=== PATIENT | female | born 1965 | race Caucasian/White ===

== ENCOUNTER 2017-11-13 14:25 | Emergency (ER) | payer BC ==
[2017-11-13 14:53] VITALS: BP 123/72
--- NOTE | 2017-11-13 15:16 | UC ---
Ear Complaint HPI - HPI Summary HPI Summary: 51 yo female with URI symptoms x 4-5 days now with right otalgia and decreased hearing up most of the night due to pain - History of Current Complaint Chief Complaint: UCEar Stated Complaint: RT EAR COMP Time Seen by Provider: 11/13/17 15:10 Hx Obtained From: Patient Hx Last Menstrual Period: 09/21/15 Onset/Duration: Gradual Onset, Lasting Days Severity Initially: Moderate Severity Currently: Mild Pain Intensity: 3 Pain Scale Used: 0-10 Numeric Associated Signs/Symptoms: Positive: Hearing Loss, URI Symptoms - Allergies/Home Medications Allergies/Adverse Reactions: Allergies Allergy/AdvReac Type Severity Reaction Status Date / Time amoxicillin [From Augmentin] Allergy Nausea GI Verified 11/13/17 15:01 upset diarrhea clavulanic acid Allergy Nausea, GI Verified 11/13/17 15:01 [From Augmentin] upset, diarrhea Home Medications: Home Medications Omeprazole 40 mg PO DAILY PRN 11/13/17 [History Confirmed 11/13/17] PMH/Surg Hx/FS Hx/Imm Hx Previously Healthy: Yes Endocrine History: Dyslipidemia - Surgical History Surgical History: Yes Surgery Procedure, Year, and Place: gall bladder removal, left leg fx with metal plate 12/2016 - Family History Known Family History: Positive: Cardiac Disease, Hypertension, Diabetes - Social History Alcohol Use: Weekly Substance Use Type: None Smoking Status (MU): Never Smoked Tobacco - Immunization History Most Recent Influenza Vaccination: may 2015 Review of Systems Constitutional: Negative Skin: Negative Eyes: Negative ENT: Ear Ache, Nasal Discharge, Sinus Congestion, Sinus Pain/Tenderness Respiratory: Negative Cardiovascular: Negative Gastrointestinal: Negative Genitourinary: Negative Motor: Negative Neurovascular: Negative Musculoskeletal: Negative Neurological: Negative Psychological: Negative Is Patient Immunocompromised?: No All Other Systems Reviewed And Are Negative: Yes Physical Exam Triage Information Reviewed: Yes Appearance: Well-Appearing, No Pain Distress, Well-Nourished Vital Signs: Initial Vital Signs Temp 99.1 F 11/13/17 14:47 Pulse 86 11/13/17 14:47 Resp 20 11/13/17 14:47 BP 123/72 11/13/17 14:47 Pulse Ox 98 11/13/17 14:47 Vital Signs Reviewed: Yes Eyes: Positive: Conjunctiva Clear ENT: Positive: Pharynx normal, Nasal congestion, TM bulging, TM red - slight right. Negative: Hearing grossly normal, Nasal drainage Neck: Positive: Supple, Nontender Respiratory: Positive: Lungs clear, Normal breath sounds, No respiratory distress, No accessory muscle use Cardiovascular: Positive: RRR, No Murmur Musculoskeletal: Positive: ROM Intact, No Edema Neurological: Positive: Alert Psychological Exam: Normal Skin Exam: Normal Ear Complaint Course/Dx - Differential Dx/Diagnosis Provider Diagnoses: viral URI. right serous otitis media Discharge - Sign-Out/Discharge Documenting (check all that apply): Discharge/Admit/Transfer - Discharge Plan Condition: Stable Disposition: HOME Prescriptions: Azithromycin TAB* [Zithromax TAB*] 250 mg PO DAILY #6 tab Patient Education Materials: Serous Otitis Media (ED) Referrals: Phuong Sotelo MD [Primary Care Provider] - 2 Weeks (if not better) - Billing Disposition and Condition Condition: STABLE Disposition: HOME
== END 2017-11-13 15:24 | disposition home or self-care (01) ==
LOC: UCCORT 14:25
DX: J06.9 Acute upper respiratory infection, unspecified (principal); H65.91 Unspecified nonsuppurative otitis media, right ear; Z88.8 Allergy status to other drugs, medicaments and biological substances; Z88.0 Allergy status to penicillin
CPT/HCPCS: 99212; G0463

== ENCOUNTER 2018-01-04 10:50 | Emergency (ER) | payer BC ==
[2018-01-04 12:02] VITALS: BP 112/69
--- NOTE | 2018-01-04 13:06 | UC ---
UC General HPI - HPI Summary HPI Summary: Patient presents complaining of 3 week history of sinus congestion, one week history of cough with green sputum and sore throat for the past 3 days. She thinks the cough and sore throat may be secondary to her sinus postnasal drip. She recently developed green nasal discharge and sinus pressure. She self treats with allergy medication and nasal steroid spray routinely. She notes this is consistent with a sinus infection. She has no fever. - History of Current Complaint Hx Obtained From: Patient Hx Last Menstrual Period: 09/21/15 Onset/Duration: Gradual Onset Timing: Constant Pain Intensity: 5 Associated Signs & Symptoms: Positive: Cough. Negative: Fever, Headache <Abby Zuñiga - Last Filed: 01/04/18 13:08> <Jeison Khan - Last Filed: 01/06/18 07:48> - History of Current Complaint Chief Complaint: UCRespiratory Stated Complaint: SINUS COMPLAINT Time Seen by Provider: 01/04/18 12:58 - Allergy/Home Medications Allergies/Adverse Reactions: Allergies Allergy/AdvReac Type Severity Reaction Status Date / Time amoxicillin [From Augmentin] Allergy Nausea GI Verified 01/04/18 11:56 upset diarrhea clavulanic acid Allergy Nausea, GI Verified 01/04/18 11:56 [From Augmentin] upset, diarrhea Home Medications: Home Medications Ibuprofen/Pseudoephedrine HCl [Advil Cold & Sinus] 1 tab PO Q4H PRN 01/04/18 [ History Confirmed 01/04/18] PMH/Surg Hx/FS Hx/Imm Hx - Additional Past Medical History Additional PMH: Sinusitis, immunoglobulin deficiency. - Surgical History Surgical History: Yes Surgery Procedure, Year, and Place: gall bladder removal, left leg fx with metal plate 12/2016. hysterectomy - Family History Known Family History: Positive: None, Cardiac Disease, Hypertension, Diabetes - Social History Lives: With Family Alcohol Use: Weekly Substance Use Type: None Smoking Status (MU): Never Smoked Tobacco - Immunization History Most Recent Influenza Vaccination: may 2015 Vaccination Up to Date: Yes <Abby Zuñiga - Last Filed: 01/04/18 13:08> Review of Systems Constitutional: Negative Skin: Negative Eyes: Negative ENT: Sore Throat, Nasal Discharge, Sinus Congestion, Sinus Pain/Tenderness Respiratory: Cough Cardiovascular: Negative Gastrointestinal: Negative Genitourinary: Negative Motor: Negative Neurovascular: Negative Musculoskeletal: Negative Neurological: Negative Psychological: Negative Is Patient Immunocompromised?: No All Other Systems Reviewed And Are Negative: Yes <Abby Zuñiga - Last Filed: 01/04/18 13:08> Physical Exam Triage Information Reviewed: Yes Appearance: Well-Appearing Vital Signs: Initial Vital Signs Temp 98.1 F 01/04/18 11:58 Pulse 67 01/04/18 11:58 Resp 16 01/04/18 11:58 BP 112/69 01/04/18 11:58 Pulse Ox 100 01/04/18 11:58 Eyes: Positive: Conjunctiva Clear ENT: Positive: Pharynx normal, Nasal congestion, TMs normal. Negative: Nasal drainage, Sinus tenderness Neck: Positive: Supple, Nontender, No Lymphadenopathy Respiratory: Positive: Lungs clear, Normal breath sounds Cardiovascular: Positive: RRR, No Murmur Abdomen Description: Positive: Nontender, No Organomegaly, Soft Bowel Sounds: Positive: Present Musculoskeletal: Positive: ROM Intact Neurological: Positive: Alert Psychological: Positive: Age Appropriate Behavior Skin Exam: Normal <Abby Zuñiga - Last Filed: 01/04/18 13:08> Vital Signs: Initial Vital Signs Temp 98.1 F 01/04/18 11:58 Pulse 67 01/04/18 11:58 Resp 16 01/04/18 11:58 BP 112/69 01/04/18 11:58 Pulse Ox 100 01/04/18 11:58 <Jeison Khan - Last Filed: 01/06/18 07:48> Course/Dx - Course Course Of Treatment: Patient is nontoxic. Her history and physical exam are consistent with a sinus infection plus she has IgG deficiency assembling to cover her with an antibiotic. She notes GI upset with Augmentin thus we will use doxycycline. I have suggested she take it with food if it upsets her stomach. I have also advised of possible side effect of photosensitivity. - Differential Dx - Multi-Symptom Provider Diagnoses: Sinusitis <Abby Zuñiga Last Filed: 01/04/18 13:08> Discharge - Sign-Out/Discharge Documenting (check all that apply): Discharge/Admit/Transfer - Billing Disposition and Condition Condition: STABLE Disposition: Home <Abby Zuñiga - Last Filed: 01/04/18 13:08> - Billing Disposition and Condition Condition: STABLE Disposition: Home <Jeison Khan - Last Filed: 01/06/18 07:48> - Discharge Plan Condition: Stable Disposition: HOME Prescriptions: DOXYcycline CAP(*) [DOXYcycline 100MG CAP(*)] 100 mg PO BID 10 Days #20 cap Patient Education Materials: Sinusitis (ED) Referrals: Phuong Sotelo MD [Primary Care Provider] - 7 Days Additional Instructions: Per institutional requirements, I have reviewed the chart, however, I was not consulted specifically or made aware of this patient by the above midlevel provider. I did not personally evaluate, interact with , or disposition this patient.
== END 2018-01-04 13:09 | disposition home or self-care (01) ==
LOC: UCCORT 10:50
DX: J32.9 Chronic sinusitis, unspecified (principal); Z09 Encounter for follow-up examination after completed treatment for conditions other than malignant neoplasm; Z88.0 Allergy status to penicillin; Z88.8 Allergy status to other drugs, medicaments and biological substances
CPT/HCPCS: 99212; G0463

== ENCOUNTER 2018-03-21 12:05 | Emergency (ER) | payer BC ==
--- OUTSIDE RECORDS SUMMARY | 2018-03-21 14:02 | XMS REPORT ---
:1965 External Reference #:[id number] [facility] Address [address] [address] Phone [phone] Care Team Providers Name Role Phone Phuong Sotelo MD Care Team Information [employer] Unavailable Payers Type Date Identification Numbers Payment Provider Subscriber Commercial Effective: Policy Number: BCBS Commercial Tammy Brown 2011 [id number] Luis PayID: [id number] [facility] [address] [place] [address] Problems Date Description Provider Status Onset: 03/21/2012 Irritable bowel syndrome Phuong Sotelo MD Active Onset: 07/19/2011 Allergic rhinitis Phuong Sotelo MD Active Onset: 08/29/2006 Generalized anxiety disorder Phuong Sotelo MD Active Onset: 08/29/2006 Palpitations Phuong Sotelo MD Active Onset: 12/30/2015 Hyperpituitarism Phuong Sotelo MD Active Onset: 08/08/2017 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 Onset: 03/06/2018 Mixed hyperlipidemia Phuong Sotelo MD Active Onset: 07/18/2010 Benign neoplasm of stomach Phuong Sotelo MD Resolved Resolved: 08/16/2014 Onset: 07/18/2010 Cholesterolosis of gallbladder Phuong Sotelo MD Resolved Resolved: 08/16/2014 Onset: 07/18/2010 Gastritis Phuong Sotelo MD Resolved Resolved: 08/16/2014 Onset: 10/14/2007 Benign neoplasm of liver and/or biliary Phuong Sotelo MD Resolved ducts Resolved: 08/16/2014 Onset: 2006 Chest pain Phuong Sotelo MD Resolved Resolved: 08/16/2014 Onset: 08/29/2006 Heartburn Phuong Sotelo MD Resolved Resolved: 08/16/2014 Family History Date Family Member(s) Problem(s) Comments Father Hypercholesterolemia Mother Hypertension Mother Hypothyroidism Paternal Grandfather Parkinson's Disease Social History Type Date Description Comments Marital Status Occupation Speech Therapist At [employer] Cigarette Use Never Smoked Cigarettes ETOH Use Occasionally consumes alcohol Smoking Patient has never smoked General Hx Text Allergies, Adverse Reactions, Alerts Date Description Reaction Status Severity Comments 08/09/2010 Augmentin active Medications Medication Date Status Form Strength Qnty SIG Indications Ordering Provider Cyclobenzaprine 03/06/ Active Tablets 10mg 30tabs 1 by M54.2 MELANIE Sotelo 2018 mouth MD Phuong every at bedtime x 1-2 weeks, then as needed muscle spasm Clonazepam 08/08/ Active Tablets 0.5mg 30tabs 1 po F41.1 Nicki Sotelo every 12 MD Phuong hours as needed severe anxiety Esomeprazole 04/01/ Active Capsules 40mg 30caps 1 by R10.[address] harsha Baca MD every day K21.9 Fluticasone 04/01/2017 Active Suspension 50mcg/Act 48units 2 sprays to [place] Sotelo each nostril MD Phuong daily for nasal congestion Doxycycline 11/22/2017 - Hx Capsules 100mg 20caps 1 tablet by Han Fuentesclate 12/02/2017 mouth twice 0 Alexanderdanilo day x 10 1 DO days . 1 0 Azithromycin 08/22/2017 - Hx Tablets 250mg 6tabs 2 tablets by Mary Mcintyre 08/27/2017 mouth on day 0 Kait Munoz then 1 6 DO tablet on . days 2-5 9 Oseltamivir 08/08/2017 - Hx Capsules 75mg 10caps 1 by mouth D Ammy Sotelo 11/22/2017 every day 8 MD Phuong for 10 days 0 . 2 Bupropion HCL 07/15/2017 - Hx Tablets 75mg 60tabs take 1 F Deepak 08/08/2017 tablet by 4 MD Phuong mouth twice 1 a day . 1 Bupropion HCL 07/09/2017 - Hx Tablets ER 150mg 30tabs 1 by mouth F Deepak ER (XL) 07/15/2017 24HR every day 4 MD Phuong 1 . 1 Colestipol HCL 04/01/2017 - Hx Tablets 1gm 120tabs 1 by mouth K Deepak , 07/09/2017 daily as 5 MD Phuong needed - 8 increase . dose by 1 9 pill daily as needed for desired effect for mdd of 4 pills Flonase 07/15/2015 - Hx Suspension 50mcg/Act 48units 2 sprays to Deepak Allergy Relief 04/01/2017 each nostril MD Phuong daily for nasal congestion Flexeril 05/09/2015 - Hx Tablets 10mg 30tabs take one Deepak 12/30/2015 tablet by MD Phuong mouth at bedtime as needed for muscle spasm Prevpac 04/05/2015 - Hx Misc QS 1 dose twice B Deepak 07/15/2015 a day x 14 9 MD Phuong days 6 . 8 1 Nexium 03/29/2015 - Hx Capsules DR 40mg 30caps 1 by mouth R Deepak 04/01/2017 every day 1 MD Phuong 0 . 1 3 K21.9 Omeprazole 05/10/2014 - Hx Capsules DR 20mg 90caps 1 by mouth R10.13 Deepak 03/29/2015 every day MD Phuong K21.9 Buspirone HCL 06/24/2013 - Hx Tablets 5mg 270tabs 1-2 by mouth F41.1 Deepak 07/09/2017 three times a MD Phuong day as needed anxiety Flonase 07/19/2011 - Hx Suspension 50mcg/ 48units 2 sprays to Deepak 07/15/2015 Act each nostril MD Phuong daily for nasal congestion Dicyclomine - Hx Capsules 10mg 1 po tid prn Lencho Salmeron HCL 12/30/2015 IBS MD chandra Flexeril - Hx Tablets 5mg 1 by mouth Unknown 05/09/2015 tid Immunizations CPT Code Status Date Vaccine Reaction Lot # Q2035 Given 04/02/2017 Afluria Imunization Q2035 Given 04/13/2016 Afluria Imunization Q2037 Given 04/29/2015 Fluvirin Immunization 13342 Given 04/02/2014 Afluria Or Fluvirin Flu Vac Intramuscular 17062 Given 05/09/2013 Afluria Or Fluvirin Flu Vac Intramuscular 85525 Given 03/21/2012 Afluria Or Fluvirin Flu Vac VIS DATE 01/07/12 Intramuscular 74073 Given 06/14/2009 Afluria Or Fluvirin Flu Vac Intramuscular Vital Signs Date Vital Result Comment 03/06/2018 Body Temperature 98.7 F Weight 158.00 lb Heart Rate 68 /min BP Systolic 134 mmHg BP Diastolic 72 mmHg Respiratory Rate 18 /min Height 62 inches 5'2" 5'2 08/08/17 BMI (Body Mass Index) 28.9 kg/m2 11/22/2017 Body Temperature 98.4 F Advil 3 Hours Ago Weight 154.00 lb Heart Rate 70 /min BP Systolic 128 mmHg BP Diastolic 68 mmHg Respiratory Rate 18 /min Height 62 inches 5'2" 5'2 08/08/17 BMI (Body Mass Index) 28.2 kg/m2 08/22/2017 Body Temperature 97.8 F Weight 150.00 lb Heart Rate 76 /min BP Systolic 120 mmHg BP Diastolic 74 mmHg Respiratory Rate 18 /min Height 62 inches 5'2" 5'2 08/08/17 BMI (Body Mass Index) 27.4 kg/m2 08/08/2017 Weight 153.00 lb Heart Rate 76 /min BP Systolic 102 mmHg BP Diastolic 62 mmHg Respiratory Rate 18 /min Height 62 inches 5'2 08/08/17 BMI (Body Mass Index) 28.0 kg/m2 07/09/2017 Body Temperature 99.3 F tympanic Weight 162.00 lb Heart Rate 76 /min BP Systolic 126 mmHg BP Diastolic 80 mmHg Respiratory Rate 18 /min Height 62 inches 5'2"09/27/16 BMI (Body Mass Index) 29.6 kg/m2 04/01/2017 Weight 161.00 lb Heart Rate 88 /min BP Systolic 122 mmHg BP Diastolic 80 mmHg Respiratory Rate 18 /min Height 62 inches 5'2"09/27/16 BMI (Body Mass Index) 29.4 kg/m2 10/12/2016 Body Temperature 99.4 F Weight 152.00 lb Heart Rate 74 /min BP Systolic 124 mmHg BP Diastolic 70 mmHg Respiratory Rate 18 /min Height 62 inches 5'2"09/27/16 BMI (Body Mass Index) 27.8 kg/m2 09/27/2016 Weight 154.00 lb Heart Rate 76 /min BP Systolic 122 mmHg BP Diastolic 70 mmHg Respiratory Rate 18 /min Height 62 inches 5'2"09/27/16 BMI (Body Mass Index) 28.2 kg/m2 09/04/2016 Body Temperature 98.9 F Weight 153.00 lb Heart Rate 72 /min BP Systolic 110 mmHg BP Diastolic 70 mmHg Respiratory Rate 18 /min Height 62 inches 5'2" BMI (Body Mass Index) 28.0 kg/m2 07/14/2016 Body Temperature 97.6 F Weight 160.00 lb Heart Rate 68 /min BP Systolic 120 mmHg BP Diastolic 80 mmHg Respiratory Rate 18 /min Height 62 inches 5'2" O2 % BldC Oximetry 99 % Ra BMI (Body Mass Index) 29.3 kg/m2 12/30/2015 Weight 153.00 lb Heart Rate 76 /min BP Systolic 132 mmHg BP Diastolic 70 mmHg Respiratory Rate 18 /min Height 62 inches 5'2" BMI (Body Mass Index) 28.0 kg/m2 07/15/2015 Weight 160.00 lb Heart Rate 76 /min BP Systolic 122 mmHg BP Diastolic 60 mmHg Respiratory Rate 18 /min Height 62 inches 5'2" BMI (Body Mass Index) 29.3 kg/m2 05/09/2015 Weight 159.00 lb Heart Rate 74 /min BP Systolic 112 mmHg BP Diastolic 78 mmHg Respiratory Rate 18 /min Height 62 inches 5'2" BMI (Body Mass Index) 29.1 kg/m2 04/05/2015 Weight 160.00 lb Heart Rate 68 /min BP Systolic 132 mmHg BP Diastolic 80 mmHg Respiratory Rate 18 /min Height 62 inches 5'2" BMI (Body Mass Index) 29.3 kg/m2 03/29/2015 Weight 160.00 lb Heart Rate 76 /min BP Systolic 102 mmHg BP Diastolic 68 mmHg Respiratory Rate 18 /min Height 62 inches 5'2" BMI (Body Mass Index) 29.3 kg/m2 01/24/2015 Weight 159.00 lb Heart Rate 80 /min BP Systolic 102 mmHg BP Diastolic 70 mmHg Respiratory Rate 18 /min Height 62 inches 5'2" BMI (Body Mass Index) 29.1 kg/m2 11/17/2014 Body Temperature 98.6 F Weight 154.00 lb Down 6 # Heart Rate 70 /min BP Systolic 120 mmHg BP Diastolic 70 mmHg Respiratory Rate 18 /min Height 62 inches 5'2" BMI (Body Mass Index) 28.2 kg/m2 08/16/2014 Weight 162.00 lb Heart Rate 78 /min BP Systolic 116 mmHg BP Diastolic 74 mmHg Respiratory Rate 16 /min Height 61.5 inches 5'1.50" BMI (Body Mass Index) 30.1 kg/m2 05/10/2014 Weight 160.00 lb Heart Rate 68 /min BP Systolic 102 mmHg BP Diastolic 70 mmHg Respiratory Rate 18 /min Height 61.5 inches 5'1.50" 11/09/2013 Weight 156.00 lb Heart Rate 68 /min BP Systolic 110 mmHg BP Diastolic 70 mmHg Respiratory Rate 18 /min Height 61.5 inches 5'1.50" 08/17/2013 Weight 156.00 lb Heart Rate 80 /min BP Systolic 124 mmHg BP Diastolic 70 mmHg Respiratory Rate 16 /min Height 61.5 inches 5'1.50" 06/24/2013 Weight 156.00 lb Heart Rate 76 /min BP Systolic 110 mmHg BP Diastolic 72 mmHg Respiratory Rate 18 /min 05/21/2013 Body Temperature 98.3 F Weight 155.00 lb Heart Rate 64 /min BP Systolic 110 mmHg BP Diastolic 74 mmHg Respiratory Rate 18 /min 09/05/2012 Weight 161.00 lb Heart Rate 80 /min BP Systolic 114 mmHg BP Diastolic 76 mmHg Respiratory Rate 16 /min Height 61.5 inches 5'1.50" (Done On 07/22/12) 08/11/2012 Body Temperature 97.6 F Weight 157.00 lb Heart Rate 76 /min BP Systolic 124 mmHg L/Reg BP Diastolic 88 mmHg L/Reg Respiratory Rate 16 /min Height 61.5 inches 5'1.50" 07/22/2012 Weight 156.00 lb Heart Rate 84 /min BP Systolic 110 mmHg BP Diastolic 70 mmHg Respiratory Rate 16 /min Height 61.5 inches 5'1.50" 03/21/2012 Weight 157.00 lb Heart Rate 80 /min BP Systolic 100 mmHg BP Diastolic 70 mmHg Respiratory Rate 16 /min Height 61.75 inches 5'1.75" (Done On 07/19/11) 01/03/2012 Weight 148.00 lb Heart Rate 80 /min BP Systolic 112 mmHg BP Diastolic 72 mmHg Respiratory Rate 16 /min Height 61.75 inches 5'1.75" (Done On 07/19/11) 12/12/2011 Body Temperature 98.6 F Weight 150.00 lb Heart Rate 80 /min BP Systolic 118 mmHg BP Diastolic 74 mmHg Respiratory Rate 16 /min Height 61.75 inches 5'1.75" (Done On 07/19/11) 08/24/2011 Body Temperature 98.4 F Weight 152.00 lb Heart Rate 72 /min BP Systolic 124 mmHg BP Diastolic 72 mmHg Height 61.75 inches 5'1.75" 07/19/2011 Body Temperature 97.8 F Weight 160.00 lb Heart Rate 88 /min BP Systolic 100 mmHg BP Diastolic 62 mmHg Respiratory Rate 16 /min Height 61.75 inches 5'1.75" 05/16/2011 Weight 159.00 lb Heart Rate 72 /min BP Systolic 128 mmHg BP Diastolic 70 mmHg Respiratory Rate 20 /min Height 62 inches 5'2" 01/22/2011 Weight 152.00 lb Heart Rate 72 /min BP Systolic 104 mmHg BP Diastolic 72 mmHg Height 62 inches 5'2" 08/19/2010 Body Temperature 97.7 F Weight 151.00 lb Heart Rate 76 /min BP Systolic 104 mmHg l arm BP Diastolic 68 mmHg l arm Respiratory Rate 18 /min 08/09/2010 Body Temperature 98.8 F Weight 153.00 lb Heart Rate 70 /min BP Systolic 118 mmHg BP Diastolic 70 mmHg Respiratory Rate 14 /min 07/18/2010 Weight 156.00 lb Heart Rate 76 /min BP Systolic 110 mmHg BP Diastolic 70 mmHg Respiratory Rate 16 /min Height 61.75 inches 5'1.75" 10/27/2009 Weight 152.00 lb Heart Rate 68 /min BP Systolic 112 mmHg BP Diastolic 68 mmHg Respiratory Rate 16 /min 10/10/2009 Weight 152.00 lb Heart Rate 80 /min BP Systolic 100 mmHg BP Diastolic 64 mmHg Respiratory Rate 16 /min 09/05/2009 Weight 154.00 lb Heart Rate 72 /min BP Systolic 116 mmHg BP Diastolic 72 mmHg Respiratory Rate 16 /min 08/29/2009 Weight 155.00 lb Heart Rate 88 /min BP Systolic 114 mmHg BP Diastolic 74 mmHg Respiratory Rate 16 /min O2 % BldC Oximetry 96 % 07/15/2009 Weight 152.00 lb Heart Rate 76 /min BP Systolic 110 mmHg BP Diastolic 70 mmHg Respiratory Rate 16 /min Height 61.5 inches 5'1.50" 04/20/2009 BP Systolic 118 mmHg BP Diastolic 82 mmHg 04/20/2009 Body Temperature 99.5 F Weight 149.00 lb Heart Rate 70 /min BP Systolic 130 mmHg BP Diastolic 90 mmHg Respiratory Rate 15 /min 04/15/2009 Weight 150.00 lb Heart Rate 96 /min BP Systolic 110 mmHg BP Diastolic 74 mmHg Respiratory Rate 18 /min 08/26/2008 Body Temperature 98.3 F Weight 149.00 lb Heart Rate 72 /min BP Systolic 104 mmHg BP Diastolic 70 mmHg Respiratory Rate 18 /min 08/16/2008 Body Temperature 99.3 F Weight 150.00 lb Heart Rate 80 /min BP Systolic 102 mmHg BP Diastolic 70 mmHg Respiratory Rate 18 /min Height 61.75 inches 5'1.75" 09/15/2007 Body Temperature 97.5 F Weight 152.00 lb Heart Rate 87 /min BP Systolic 100 mmHg BP Diastolic 70 mmHg Respiratory Rate 16 /min Height 61.5 inches 5'1.50" O2 % BldC Oximetry 98 % 09/11/2007 Body Temperature 98.0 F Weight 151.00 lb Heart Rate 100 /min BP Systolic 110 mmHg BP Diastolic 70 mmHg Respiratory Rate 18 /min Height 61.5 inches 5'1.50" O2 % BldC Oximetry 96 % 08/20/2007 Body Temperature 98.6 F Weight 150.00 lb Heart Rate 63 /min BP Systolic 110 mmHg BP Diastolic 70 mmHg Respiratory Rate 17 /min Height 61.5 inches 5'1.50" 07/22/2007 Weight 151.00 lb Heart Rate 76 /min BP Systolic 110 mmHg BP Diastolic 74 mmHg Respiratory Rate 16 /min Height 61.5 inches 5'1.50" 02/27/2007 Weight 150.00 lb Heart Rate 76 /min BP Systolic 108 mmHg BP Diastolic 78 mmHg Respiratory Rate 16 /min Height 61.5 inches 5'1.50" 12/27/2006 Weight 147.00 lb Heart Rate 72 /min BP Systolic 110 mmHg BP Diastolic 70 mmHg Respiratory Rate 16 /min Height 61.5 inches 5'1.50" 12/16/2006 Weight 146.00 lb Heart Rate 68 /min BP Systolic 110 mmHg BP Diastolic 70 mmHg Respiratory Rate 16 /min Height 61.5 inches 5'1.50" 12/06/2006 Weight 146.31 lb Heart Rate 76 /min BP Systolic 116 mmHg BP Diastolic 76 mmHg Respiratory Rate 16 /min Height 61.5 inches 5'1.50" 2006 Weight 146.56 lb Heart Rate 80 /min BP Systolic 110 mmHg BP Diastolic 74 mmHg Respiratory Rate 16 /min Height 61.5 inches 5'1.50" 11/22/2006 Weight 152.00 lb Heart Rate 72 /min BP Systolic 114 mmHg BP Diastolic 80 mmHg Respiratory Rate 16 /min Height 61.5 inches 5'1.50" 08/29/2006 Weight 146.00 lb Heart Rate 84 /min BP Systolic 110 mmHg BP Diastolic 80 mmHg Respiratory Rate 16 /min Height 61.5 inches 5'1.50" 05/10/2006 Weight 149.00 lb Heart Rate 88 /min BP Systolic 116 mmHg BP Diastolic 76 mmHg Respiratory Rate 16 /min Height 61.5 inches 5'1.50" 04/05/2006 Body Temperature 99.1 F Weight 151.00 lb Heart Rate 67 /min BP Systolic 114 mmHg BP Diastolic 80 mmHg Respiratory Rate 17 /min Height 61.5 inches 5'1.50" 02/22/2006 Weight 150.00 lb Heart Rate 72 /min BP Systolic 108 mmHg BP Diastolic 70 mmHg Respiratory Rate 18 /min Height 61.5 inches 5'1.50" 01/24/2006 Weight 148.12 lb Heart Rate 68 /min BP Systolic 108 mmHg BP Diastolic 68 mmHg Respiratory Rate 16 /min Height 61.5 inches 5'1.50" 01/11/2006 Weight 149.00 lb Heart Rate 63 /min BP Systolic 110 mmHg BP Diastolic 70 mmHg Respiratory Rate 16 /min Height 61.5 inches 5'1.50" 10/24/2005 Body Temperature 98.2 F Weight 142.00 lb Heart Rate 60 /min BP Systolic 114 mmHg BP Diastolic 74 mmHg Respiratory Rate 16 /min Height 61.5 inches 5'1.50" 08/16/2005 Weight 140.00 lb Heart Rate 58 /min BP Systolic 112 mmHg BP Diastolic 70 mmHg Respiratory Rate 16 /min Height 61.5 inches 5'1.50" 01/15/2005 Weight 140.31 lb Heart Rate 72 /min BP Systolic 104 mmHg BP Diastolic 70 mmHg Respiratory Rate 18 /min Height 61.5 inches 5'1.50" 10/05/2004 Body Temperature 98.8 F Weight 144.00 lb Heart Rate 100 /min BP Systolic 104 mmHg BP Diastolic 74 mmHg Respiratory Rate 16 /min Results Test Date Test Result H/L Range Note CBC with Auto Diff-fcmg 02/12/2018 WBC 7.9 K/uL 4.1-11.0 1 RBC 4.70 M/uL 4.00-5.40 1 Hemoglobin 14.3 gm/dL 12.0-16.0 1 Hematocrit 43.0 % 36.0-47.0 1 MCV 91.5 fL 80.0-97.0 1 MCH 30.5 pg 27.0-32.0 1 MCHC 33.3 g/dL 32.0-36.0 1 RDW 13.1 % 11.5-14.5 1 PLT Count 200 K/ul 140-400 1 MPV 8.8 FL 7.1-10.7 1 Neutrophil 65.5 % 35.0-75.0 1 Lymphocyte 27.0 % 16.0-52.0 1 Monocyte 6.2 % 2.0-10.0 1 Eosinophil 0.8 % 0.0-5.0 1 Basophil 0.5 % 0.0-4.0 1 Abs Neutrophils 5.2 K/uL 2.1-8.0 1 Abs Lymphocytes 2.1 K/uL 0.8-5.5 1 Abs Monocytes 0.5 K/uL 0.1-1.0 1 Abs Eosinophils 0.1 K/uL 0.0-0.5 1 Abs Basophils 0.0 K/uL 0.0-0.3 1 Comprehensive Metabolic-RL 02/12/2018 Sodium 140 mmol/L 135-146 1, 2 Potassium 3.9 mmol/L 3.5-5.2 1 Chloride# 107 mmol/L 97-110 1, 3 Carbon Dioxide 23 mmol/L Low 24-34 1 Glucose 103 mg/dL 70-105 1 BUN 11 mg/dL 6-26 1 Creatinine 0.8 mg/dL 0.5-1.4 1 Calcium 9.4 mg/dL 8.5-10.2 1 Total Protein 6.2 g/dL 6.0-8.0 1 Albumin 4.4 g/dL 3.6-4.9 1 Globulin 1.8 g/dL Low 2.0-3.5 1 A/G Ratio 2.4 Ratio High 1.0-2.2 1 Total Bilirubin 0.4 mg/dL 0.1-1.3 1 Alkaline Phosphatase 39 U/L 24-140 1 Alt 15 U/L 3-42 1 Ast 16 U/L 8-42 1 Joya Egfr >60 >60 1, 4 Non Joya Egfr >60 >60 1, 5 Anion Gap 10 mmol/L 5-15 1, 6 Laboratory test finding 02/12/2018 TSH 1.35 uIU/mL 0.35-4.94 1 Prolactin 5.4 ng/ml 1, 7 Lipid 02/12/2018 Cholesterol 254 mg/dL High 50-199 1 Triglycerides 123 mg/dL 30-200 1 HDL 54 mg/dL 35-85 1, 8 Chol/ HDL Ratio 4.7 ratio 3.7-5.6 1 VLDL 25 mg/dL 2-29 1 LDL (Calc) 176 mg/dL High 20-99 1, 9 Basic (BMP) 06/27/2017 Glucose 102 mg/dL 74-106 10 BUN 11 mg/dL 7-18 10 Creatinine 0.7 mg/dL 0.6-1.3 10 Glom Filtration Rate, Estimate >60 mL/min >60 10 If >60 mL/min >60 10, 11 BUN/Creat 15.7 ratio 10 Sodium 141 mmol/L 136-145 10 Potassium 3.5 mmol/L 3.5-5.1 10 Chloride 108 mmol/L High 98-107 10 Carbon Dioxide 28 mmol/L 21-32 10 Anion Gap 5 mEq/L Low 8-16 10 Calcium 8.9 mg/dL 8.5-10.1 10 CBC With Auto Diff 06/27/2017 White Blood Count 6.4 K/uL 3.1-10.7 10 Red Blood Count 4.67 M/uL 3.90-5.40 10 Hemoglobin 14.3 gm/dL 11.6-15.8 10 Hematocrit 41.5 % 36.0-46.1 10 Mean Cell Volume 88.9 fl 80.9-99.0 10 Mean Corpuscular HGB 30.6 pg 25.9-32.7 10 Mean Corpuscular HGB Conc 34.5 g/dL High 30.8-34.3 10 Platelet Count 212 K/uL 155-360 10 Red Cell Distri Width SD 43.9 fl 3-47 10 Red Cell Distri Width %CV 13.9 % 11.7-14.4 10 Mean Platelet Volume 11.2 fL 8.9-12.4 10 Neut% 55.6 % 40.4-72.8 10 Lymph % 35.1 % 20.0-42.0 10 [place] % 7.2 % 4.3-13.2 10 Eo% 1.6 % 0.0-6.6 10 Bas% 0.5 % 0.0-1.1 10 Neut# 3.58 K/uL 1.8-7.0 10 Lymph # 2.26 K/uL 1.0-4.0 10 [place] # 0.46 K/uL 0.3-0.9 10 Eos # 0.10 K/uL 0.0-0.5 10 Baso # 0.03 K/uL 0.0-0.1 10 Laboratory test finding 06/27/2017 Thyroid Stim Hormone 1.50 uIU/mL 0.30- 4.20 10 Vitamin D,25-Hydroxy 22.5 ng/mL Low 30.0-100.0 10, 12 Prolactin 12.5 ng/mL 10, 13 CBS W/Automated Diff 12/22/2016 White Blood Count 7.3 K/uL 3.1-10.7 14 Red Blood Count 4.13 M/uL 3.90-5.40 14 Hemoglobin 12.2 gm/dL 11.6-15.8 14 Hematocrit 35.2 % Low 36.0-46.1 14 Mean Cell Volume 85.2 fl 80.9-99.0 14 Mean Corpuscular HGB 29.5 pg 25.9-32.7 14 Mean Corpuscular HGB Conc 34.7 g/dL High 30.8-34.3 14 Platelet Count 260 K/uL 150-400 14 Red Cell Distri Width SD 44.0 fl 3-47 14 Red Cell Distri Width %CV 14.4 % 11.7-14.4 14 Mean Platelet Volume 10.2 fL 8.9-12.4 14 Neut% 71.7 % 40.4-72.8 14 Lymph % 18.4 % Low 20.0-42.0 14 [place] % 8.5 % 4.3-13.2 14 Eo% 1.1 % 0.0-6.6 14 Bas% 0.3 % 0.0-1.1 14 Neut# 5.26 K/uL 1.8-7.0 14 Lymph # 1.35 K/uL 1.0-4.0 14 [place] # 0.62 K/uL 0.3-0.9 14 Eos # 0.08 K/uL 0.0-0.5 14 Baso # 0.02 K/uL 0.0-0.1 14 Comprehensive Metabolic Panel 12/22/2016 Glucose 108 mg/dL High 74-106 14 BUN 8 mg/dL 7-18 14 Creatinine 0.7 mg/dL 0.6-1.3 14 Glom Filtration Rate, Estimate >60 mL/min >60 14 If >60 mL/min >60 14, 15 BUN/Creat 11.4 ratio 14 Sodium 141 mmol/L 136-145 14 Potassium 3.5 mmol/L 3.5-5.1 14 Chloride 107 mmol/L 98-107 14 Carbon Dioxide 26 mmol/L 21-32 14 Anion Gap 8 mEq/L 8-16 14 Calcium 8.9 mg/dL 8.5-10.1 14 Total Protein 6.7 g/dL 6.4-8.2 14 Albumin 3.1 g/dL Low 3.4-5.0 14 Globulin 3.6 g/dL 1.9-4.3 14 Alb/Glob 0.9 ratio 14 Bilirubin,Total 0.2 mg/dL 0.2-1.0 14 Sgot/Ast 22 U/L 15-37 14 SGPT/Alt 32 U/L 12-78 14 Alkaline Phosphatase 66 U/L 45-117 14 Laboratory test finding 10/13/2016 H. Pylori Stool Ag SPECIMEN DESCRI> 16 Hepatic (Liver) Panel 09/12/2016 Total Protein 6.8 g/dL 6.4-8.2 17 Albumin 3.8 g/dL 3.4-5.0 17 Globulin 3.0 g/dL 1.9-4.3 17 Alb/Glob 1.3 ratio 17 Bilirubin,Total 0.2 mg/dL 0.2-1.0 17 Bilirubin,Direct < 0.1 mg/dL 0.0-0.2 17 Bilirubin,Indirect 0.1 mg/dL 0.0-0.9 17 Sgot/Ast 11 U/L Low 15-37 17, 18 SGPT/Alt 25 U/L 12-78 17 Alkaline Phosphatase 50 U/L 45-117 17 BMP (Basic) 09/12/2016 Glucose 109 mg/dL High 74-106 17 BUN 10 mg/dL 7-18 17 Creatinine 0.7 mg/dL 0.6-1.3 17 Glom Filtration Rate, Estimate >60 mL/min >60 17 If >60 mL/min >60 17, 19 BUN/Creat 14.2 ratio 17 Sodium 142 mmol/L 136-145 17 Potassium 3.4 mmol/L Low 3.5-5.1 17 Chloride 109 mmol/L High 98-107 17 Carbon Dioxide 26 mmol/L 21-32 17 Anion Gap 7 mEq/L Low 8-16 17 Calcium 8.4 mg/dL Low 8.5-10.1 17 Laboratory test finding 09/12/2016 Sedimentation Rate 8 mm/hr 0-20 17 C-Reactive Protein,Quant < 2.9 mg/L <3.0 17 Stool Culture 09/03/2016 Stool Culture NO ENTERIC PATHO <SEE NOTE> 20, 21 . ................ <SEE NOTE> 20, 22 Note: INCLUDES TESTING <SEE NOTE> 20, 23 . PLESIOMONAS, CAM <SEE NOTE> 20, 24 . ................ <SEE NOTE> 20, 25 . YERSINIA AND VIB <SEE NOTE> 20, 26 . SHOULD BE REQUES <SEE NOTE> 20, 27 Shiga Toxin 1 Antigen SHIGA TOXIN 1 NO <SEE NOTE> 20, 28 Shiga Toxin 2 Antigen SHIGA TOXIN 2 NO <SEE NOTE> 20, 29 Laboratory test finding 09/03/2016 Occult Blood,Stool NEGATIVE Negative 20 Laboratory test finding 09/03/2016 CK 48 U/L 26-192 20 Troponin-I < 0.015 ng/mL 20, 30 Comprehensive Metabolic Panel 09/03/2016 Glucose 98 mg/dL 74-106 20 BUN 7 mg/dL 7-18 20 Creatinine 0.7 mg/dL 0.6-1.3 20 Glom Filtration Rate, Estimate >60 mL/min >60 20 If >60 mL/min >60 20, 31 BUN/Creat 10.0 ratio 20 Sodium 142 mmol/L 136-145 20 Potassium 3.5 mmol/L 3.5-5.1 20 Chloride 106 mmol/L 98-107 20 Carbon Dioxide 25 mmol/L 21-32 20 Anion Gap 11 mEq/L 8-16 20 Calcium 8.3 mg/dL Low 8.5-10.1 20 Total Protein 6.7 g/dL 6.4-8.2 20 Albumin 3.5 g/dL 3.4-5.0 20 Globulin 3.2 g/dL 1.9-4.3 20 Alb/Glob 1.1 ratio 20 Bilirubin,Total 0.4 mg/dL 0.2-1.0 20 Sgot/Ast 57 U/L High 15-37 20 SGPT/Alt 52 U/L 12-78 20 Alkaline Phosphatase 66 U/L 45-117 20 Laboratory test finding 09/03/2016 D-Dimer, Quantitative 0.48 ug/mL 20 , 32 Smear For WBC'S 09/03/2016 Smear For WBC'S NONE SEEN 20 Smear Source: STOOL 20 Specimen Source: STOOL 20 Laboratory test 09/03/2016 C. Difficile Toxin A/B NEGATIVE FOR C. 20, 33 finding <SEE NOTE> Ova & Parasite 09/03/2016 Cryptosporidium Specific NEGATIVE FOR CRY 20 , 34 Antigen Screen Ag <SEE NOTE> Giardia Specific Antigen NEGATIVE FOR KAYCEE <SEE NOTE> 20, 35 CBS W/Automated Diff 09/03/2016 White Blood Count 5.4 K/uL 3.1-10.7 20 Red Blood Count 4.67 M/uL 3.90-5.40 20 Hemoglobin 13.2 gm/dL 11.6-15.8 20 Hematocrit 39.8 % 36.0-46.1 20 Mean Cell Volume 85.2 fl 80.9-99.0 20 Mean Corpuscular HGB 28.3 pg 25.9-32.7 20 Mean Corpuscular HGB Conc 33.2 g/dL 30.8-34.3 20 Platelet Count 207 K/uL 150-400 20 Red Cell Distri Width SD 46.1 fl 3-47 20 Red Cell Distri Width %CV 15.0 % High 11.7-14.4 20 Mean Platelet Volume 10.7 fL 8.9-12.4 20 Neut% 62.2 % 40.4-72.8 20 Lymph % 24.6 % 20.0-42.0 20 [place] % 11.5 % 4.3-13.2 20 Eo% 1.3 % 0.0-6.6 20 Bas% 0.4 % 0.0-1.1 20 Neut# 3.37 K/uL 1.8-7.0 20 Lymph # 1.33 K/uL 1.0-4.0 20 [place] # 0.62 K/uL 0.3-0.9 20 Eos # 0.07 K/uL 0.0-0.5 20 Baso # 0.02 K/uL 0.0-0.1 20 Laboratory test 09/03/2016 Urine HCG (Qualitative) NEGATIVE Negative 20 , 36 finding Ua RFX Micro & Culture 09/03/2016 Urine Color YELLOW Yellow 20 II Urine Clarity CLEAR Clear 20 Urine Glucose - Dipstick NEGATIVE mg/dL Negative 20 Urine Bilirubin - Dipstick NEGATIVE Negative 20 Urine Ketone TRACE mg/dL High Negative 20 Urine Specific [place] 1.020 1.010-1.030 20 Urine Blood TRACE Negative 20 Urine PH 6.0 Low 6.5-7.5 20 Urine Protein - Dipstick NEGATIVE mg/dL Negative 20 Urine Urobilinogen - Dipstick 0.2 E.U./dL 0.2-1.0 20 Urine Nitrite - Dipstick NEGATIVE Negative 20 Urine Leuk Esterase NEGATIVE Negative 20 Source: URINE, CLEAN CAT <SEE NOTE> 20, 37 Type And Screen 06/12/2016 Patient Blood Type A POS 38 Antibody Screen Negative Negative 38 Aot Request 06/12/2016 Aot Request Test(s) added 38, 39 Tests to be added: A1C 38 Laboratory test 06/12/2016 Urine HCG (Qualitative) NEGATIVE Negative 38 , 40 finding CBC 06/12/2016 White Blood Count 5.1 K/uL 3.1-10.7 38 Red Blood Count 4.10 M/uL 3.90-5.40 38 Hemoglobin 12.1 gm/dL 11.6-15.8 38 Hematocrit 35.5 % Low 36.0-46.1 38 Mean Cell Volume 86.6 fl 80.9-99.0 38 Mean Corpuscular HGB 29.5 pg 25.9-32.7 38 Mean Corpuscular HGB Conc 34.1 g/dL 30.8-34.3 38 Platelet Count 226 K/uL 155-360 38 Red Cell Distri Width %CV 13.9 % 11.7-14.4 38 Mean Platelet Volume 10.1 fL 8.9-12.4 38 Glycohemoglobin A1c 06/12/2016 Glycohemoglobin (A1c) 5.2 % 4.2-6.3 38, 41 eAG 103 mg/dL 38 Ua RFX Micro & Culture II 06/07/2016 Urine Color YELLOW Yellow 42 Urine Clarity CLEAR Clear 42 Urine Glucose - Dipstick 100 mg/dL High Negative 42 Urine Bilirubin - Dipstick NEGATIVE Negative 42 Urine Ketone NEGATIVE mg/dL Negative 42 Urine Specific [place] 1.010 1.010-1.030 42 Urine Blood NEGATIVE Negative 42 Urine PH 6.0 Low 6.5-7.5 42 Urine Protein - Dipstick NEGATIVE mg/dL Negative 42 Urine Urobilinogen - Dipstick 0.2 E.U./dL 0.2-1.0 42 Urine Nitrite - Dipstick NEGATIVE Negative 42 Urine Leuk Esterase NEGATIVE Negative 42 Source: URINE, CLEAN CAT <SEE NOTE> 42, 43 Urine Culture 06/07/2016 Urine Culture MIXED URETHRAL F <SEE NOTE> 42, 44 Quantity 10,000 - 50,000 <SEE NOTE> 42, 45 Laboratory test 03/21/2016 Urine HCG (Qualitative) NEGATIVE Negative 46 , 47 finding CMP, Comp Metabolic 12/21/2015 Glucose 105 mg/dL 74-106 Panel BUN 14 mg/dL 7-18 Creatinine 0.7 mg/dL 0.6-1.3 Glom Filtration Rate, Estimate >60 mL/min >60 If >60 mL/min >60 48 BUN/Creat 20.0 ratio Sodium 141 mmol/L 136-145 Potassium 3.8 mmol/L 3.5-5.1 Chloride 107 mmol/L 98-107 Carbon Dioxide 27 mmol/L 21-32 Anion Gap 7 mEq/L Low 8-16 Calcium 8.7 mg/dL 8.5-10.1 Total Protein 6.5 g/dL 6.4-8.2 Albumin 3.6 g/dL 3.4-5.0 Globulin 2.9 g/dL 1.9-4.3 Alb/Glob 1.2 ratio Bilirubin,Total 0.2 mg/dL 0.2-1.0 Sgot/Ast 16 U/L 15-37 SGPT/Alt 20 U/L 12-78 Alkaline Phosphatase 47 U/L 45-117 CBC With Auto Diff 12/21/2015 White Blood Count 4.9 K/uL 3.1-10.7 Red Blood Count 4.23 M/uL 3.90-5.40 Hemoglobin 12.7 gm/dL 11.6-15.8 Hematocrit 38.1 % 36.0-46.1 Mean Cell Volume 90.1 fl 80.9-99.0 Mean Corpuscular HGB 30.0 pg 25.9-32.7 Mean Corpuscular HGB Conc 33.3 g/dL 30.8-34.3 Platelet Count 215 K/uL 155-360 Red Cell Distri Width SD 42.4 fl 3-47 Red Cell Distri Width %CV 13.1 % 11.7-14.4 Mean Platelet Volume 10.3 fL 8.9-12.4 Neut% 48.5 % 40.4-72.8 Lymph % 39.8 % 17.0-46.1 [place] % 9.7 % 4.3-13.2 Eo% 1.4 % 0.0-6.6 Bas% 0.6 % 0.0-1.1 Neut# 2.39 K/uL 1.8-7.0 Lymph # 1.96 K/uL 1.8-7.0 [place] # 0.48 K/uL 0.3-0.9 Eos # 0.07 K/uL 0.0-0.5 Baso # 0.03 K/uL 0.0-0.1 Laboratory test finding 08/31/2015 Endometrial Curettage See Note 49 Laboratory test finding 08/31/2015 Urine HCG (Qualitative) NEGATIVE Negative 50 Laboratory test finding 03/29/2015 H Pylori AB Igm 0.9 EV High 51 H Pylori AB Igg <0.40 U/mL (<0.90) 52 Laboratory test finding 03/22/2015 C-Reactive Protein,Quant See Note 53 CBC W/Automated Diff 03/22/2015 White Blood Count 5.9 K/uL 3.1-10.7 Red Blood Count 4.38 M/uL 3.90-5.40 Hemoglobin 14.1 gm/dL 11.6-15.8 Hematocrit 39.9 % 36.0-46.1 Mean Cell Volume 91.1 fl 80.9-99.0 Mean Corpuscular HGB 32.2 pg 25.9-32.7 Mean Corpuscular HGB Conc 35.3 g/dL High 30.8-34.3 Platelet Count 241 K/uL 155-360 Red Cell Distri Width SD 41.9 fl 3-47 Red Cell Distri Width %CV 12.8 % 11.7-14.4 Mean Platelet Volume 10.5 fL 8.9-12.4 Neut% 60.1 % 40.4-72.8 Lymph % 31.1 % 17.0-46.1 [place] % 7.3 % 4.3-13.2 Eo% 1.2 % 0.0-6.6 Bas% 0.3 % 0.0-1.1 Neut# 3.56 K/uL 1.0-7.0 Lymph # 1.84 K/uL 1.8-7.0 [place] # 0.43 K/uL 0.3-0.9 Eos # 0.07 K/uL 0.0-0.5 Baso # 0.02 K/uL 0.0-0.1 Comprehensive Metabolic Panel 03/22/2015 Glucose 100 mg/dL 74-106 BUN 8 mg/dL 7-18 Creatinine 0.8 mg/dL 0.6-1.3 Glom Filtration Rate, Estimate >60 mL/min >60 If >60 mL/min >60 54 BUN/Creat 10.0 ratio Sodium 139 mmol/L 136-145 Potassium 3.5 mmol/L 3.5-5.1 Chloride 107 mmol/L 98-107 Carbon Dioxide 26 mmol/L 21-32 Anion Gap 6 mEq/L Low 8-16 Calcium 9.0 mg/dL 8.5-10.1 Total Protein 6.9 g/dL 6.4-8.2 Albumin 3.8 g/dL 3.4-5.0 Globulin 3.1 g/dL 1.9-4.3 Alb/Glob 1.2 ratio Bilirubin,Total 0.5 mg/dL 0.2-1.0 Sgot/Ast 16 U/L 15-37 SGPT/Alt 25 U/L 12-78 Alkaline Phosphatase 49 U/L 45-117 Laboratory test finding 03/22/2015 HCG,Serum (Qualitative) NEGATIVE ( Negative) Sedimentation Rate 3 mm/hr 0-20 Laboratory test finding 03/22/2015 Lipase 136 U/L 73-393 Troponin-I < 0.015 ng/mL 55 C-Reactive Protein,Quant < 2.9 mg/L <3.0 CK See Note 56 Comprehensive Metabolic (CMP) 11/17/2014 Sodium 137 mmol/L 134-142 Potassium 3.9 mmol/L 3.5-5.2 Chloride 105 mmol/L 97-109 Carbon Dioxide 27 mmol/L 24-34 Glucose 84 mg/dL 70-105 BUN 10 mg/dL 6-26 Creatinine 0.7 mg/dL 0.5-1.4 Calcium 9.0 mg/dL 8.5-10.2 Total Protein 6.7 g/dL 6.0-8.0 Albumin 4.4 g/dL 3.6-4.9 Globulin 2.3 g/dL 2.0-3.5 A/G Ratio 1.9 Ratio 1.0-2.2 Total Bilirubin 0.6 mg/dL 0.1-1.3 Alkaline Phosphatase 41 U/L 24-140 Alt 13 U/L 3-42 Ast 19 U/L 8-42 Anion Gap 9 mmol/L 6-14 Joya Egfr >60 >60 57 Non Joya Egfr >60 >60 58 CBC With Auto Diff 11/17/2014 WBC 5.1 K/uL 4.1-11.0 RBC 4.65 M/uL 4.00-5.40 Hemoglobin 14.3 gm/dL 12.0-16.0 Hematocrit 42.7 % 36.0-47.0 MCV 91.9 fL 80.0-97.0 MCH 30.7 pg 27.0-32.0 MCHC 33.4 g/dL 32.0-36.0 RDW 13.2 % 11.5-14.5 PLT Count 204 K/ul 140-400 Neutrophil 60.3 % 35.0-75.0 Lymphocyte 30.7 % 16.0-52.0 Monocyte 7.6 % 2.0-10.0 Eosinophil 0.8 % 0.0-5.0 Basophil 0.6 % 0.0-4.0 Abs Neutrophils 3.1 K/uL 2.1-8.0 Abs Lymphocytes 1.6 K/uL 0.8-5.5 Abmon 0.4 K/uL 0.1-1.0 Abs Eosinophils 0.0 K/uL 0.0-0.5 Abs Basophils 0.0 K/uL 0.0-0.3 Laboratory test finding 11/17/2014 Esr 6 mm/hr 0-20 Laboratory test finding 07/21/2013 Endometrial Curettage See Note 59 Laboratory test finding 07/21/2013 Urine HCG (Qualitative) Negative Negative 60 Type And Screen 07/20/2013 Antibody Screen Negative Negative Patient Blood Type A Pos Laboratory test finding 07/20/2013 Urine Amorph Sediment Small Negative Urine Bacteria Very Few None Seen Urine Bilirubin - Dipstick Negative Negative Urine Blood Small High Negative Urine Clarity Clear Clear Urine Color Yellow Yellow Urine Epithelial Cells Few None Seen /lpf Urine Glucose - Dipstick Negative mg/dL Negative Urine Ketone Negative mg/dL Negative Urine Leuk Esterase Negative Negative Urine Mucus Moderate None Seen Urine Nitrite - Dipstick Negative Negative Urine PH 6.0 Low 6.5-7.5 Urine Protein - Dipstick Negative mg/dL Negative Urine RBC 0-2 rbc/hpf 0-7 Urine Screen See Note 61 Urine Specific [place] >=1.030 1.010-1.030 Urine Urobilinogen - Dipstick 0.2 E.U./dL 0.2-1.0 Urine WBC 0-2 wbc/hpf 0-7 Laboratory test finding 07/20/2013 Anion Gap 8 mEq/L 8-16 BUN 12 mg/dL 5-23 BUN/Creat 17.1 ratio Calcium 8.8 mg/dL 8.5-10.1 Carbon Dioxide 25 mEq/L 18-29 Chloride 107 mmol/L 98-107 Creatinine 0.7 mg/dL 0.5-1.4 Glom Filtration Rate, Estimate >60 mL/min >60 Glucose 95 mg/dL 76-115 Hematocrit 40.9 % 36.0-46.1 Hemoglobin 13.9 gm/dL 11.6-15.8 If >60 mL/min >60 62 Mean Cell Volume 91.9 fl 80.9-99.0 Mean Corpuscular HGB 31.2 pg 25.9-32.7 Mean Corpuscular HGB Conc 34.0 g/dL 30.8-34.3 Mean Platelet Volume 10.7 fL 8.9-12.4 Platelet Count 201 K/uL 155-360 Potassium 3.3 mmol/L Low 3.5-5.1 Red Blood Count 4.45 M/uL 3.90-5.40 Red Cell Distri Width %CV 13.0 % 11.7-14.4 Sodium 137 mmol/L 136-145 White Blood Count 5.7 K/uL 3.1-10.7 Laboratory test finding 06/18/2013 Alb/Glob 1.4 ratio Albumin 3.9 g/dL 3.5-5.0 Alkaline Phosphatase 51 U/L 50-136 Anion Gap 7 mEq/L Low 8-16 BUN 9 mg/dL 5-23 BUN/Creat 11.2 ratio Bilirubin,Total 0.5 mg/dL 0.2-1.2 CK 43 U/L 26-190 Calcium 8.5 mg/dL 8.5-10.1 Carbon Dioxide 28 mEq/L 18-29 Chloride 108 mmol/L High 98-107 Creatinine 0.8 mg/dL 0.5-1.4 D-Dimer, Quantitative 0.30 ug/mL 63 Globulin 2.8 g/dL 1.9-4.3 Glom Filtration Rate, Estimate >60 mL/min >60 Glucose 99 mg/dL 76-115 If >60 mL/min >60 64 Lipase 125 U/L 28-380 65 Magnesium 1.5 mg/dL Low 1.7-2.3 Potassium 3.7 mmol/L 3.5-5.1 SGPT/Alt 20 U/L Low 30-65 Sgot/Ast 15 U/L Low 16-40 Sodium 139 mmol/L 136-145 Thyroid Stim Hormone 1.00 uIU/mL 0.49-4.67 Total Protein 6.7 g/dL 6.3-8.0 Troponin-I < 0.02 ng/mL 0.00-0.50 66 CBS W/Automated Diff 06/18/2013 Bas% 0.3 % 0.0-1.1 Baso # 0.02 K/uL 0.0-0.1 Eo% 0.7 % 0.0-6.6 Eos # 0.04 K/uL 0.0-0.5 Hematocrit 42.2 % 36.0-46.1 Hemoglobin 14.6 gm/dL 11.6-15.8 Lymph # 1.51 K/uL 0.8-3.4 Lymph % 24.6 % 17.0-46.1 Mean Cell Volume 90.9 fl 80.9-99.0 Mean Corpuscular HGB 31.5 pg 25.9-32.7 Mean Corpuscular HGB Conc 34.6 g/dL High 30.8-34.3 Mean Platelet Volume 10.2 fL 8.9-12.4 [place] # 0.40 K/uL 0.3-0.9 [place] % 6.5 % 4.3-13.2 Neut# 4.17 K/uL 1.0-7.0 Neut% 67.9 % 40.4-72.8 Platelet Count 208 K/uL 155-360 Red Blood Count 4.64 M/uL 3.90-5.40 Red Cell Distri Width %CV 12.8 % 11.7-14.4 Red Cell Distri Width SD 41.7 fl 3-47 White Blood Count 6.1 K/uL 3.1-10.7 Laboratory test finding 12/17/2011 Immunoglobulin A < 5 mg/dL Low 70-400 Immunoglobulin G,Quant,Serum 856 mg/dL 700-1600 Immunoglobulin M 134 mg/dL 40-230 67 Laboratory test finding 12/13/2011 H. Pylori Stool Antigen See Note 68 Smear For WBC'S None Seen Smear Source: Stool Stool For Occult Blood Negative Negative 69 Laboratory test finding 12/12/2011 Antigliadin Abs, IgA 2 units 0-19 70 Antigliadin Abs, IgG 1 units 0-19 71 Endomysial IgA Antibody Negative Negative Immunoglobulin A < 5 mg/dL Low 70-400 t-Transglutaminase IgA <2 U/mL 0-3 72 t-Transglutaminase IgG <2 U/mL 0-5 73 Lipid Panel 07/19/2011 Chol/HDL Ratio 3.8 74, 75 Cholesterol 206 mg/dL High 50-199 74 HDL Cholesterol 53 mg/dL 29-86 74 LDL 128 mg/dL 20-129 74 Triglycerides 125 mg/dL 30-249 74 VLDL Cholesterol 25 mg/dL 74 Laboratory test finding 07/19/2011 A/G Ratio 1.5 1.0-2.2 74 Absolute Basophils 0.070 K/ul 0.0-0.3 74 Absolute Eosinophils 0.093 K/ul 0.0-0.5 74 Absolute Lymphocytes 1.87 K/ul 0.8-4.8 74 Absolute Monocytes 0.424 K/ul 0.1-1.0 74 Absolute Neutrophils 3.20 K/ul 2.05-7.63 74 Albumin 4.1 g/dL 3.5-5.0 74 Alkaline Phosphatase 48 U/L 30-126 74 Alt 23 U/L 9-52 74 Ast 25 U/L 14-36 74 BUN 12 mg/dL 7-18 74 BUN/CR Ratio 19.8 Ratio 12-20 74 Basophil 1.2 % 0-2 74 Calcium 9.4 mg/dL 8.7-10.5 74 Carbon Dioxide 24 mmol/L 22-30 74 Chloride 104 mmol/L 98-107 74 Creatinine, Serum 0.6 mg/dL Low 0.7-1.2 74 Eosinophil 1.7 % 0-4 74 Globulin 2.8 g/dL 2.7-4.3 74 Glucose 99 mg/dL 65-105 74 Hematocrit 40.4 % 37.0-51.0 74 Hemoglobin 14.2 GM/dl 12.0-16.0 74 Lymphocytes 33.0 % 20-44 74 MCH 30.6 pg 26.0-32.0 74 MCHC 35.0 g/dL 31.0-36.0 74 MCV 87 FL 80-97 74 Monocytes 7.5 % 2-10.0 74 Neutrophils 56.6 % 50-70 74 Platelet Count 212 K/ul 140-440 74 Potassium 4.2 mmol/L 3.6-5.0 74 RBC 4.63 M/ul 4.2-6.3 74 RDW 11.3 % Low 11.5-14.5 74 Sodium 140 mmol/L 137-145 74 TSH 1.298 uIU/ml 0.50-6.00 74 Total Bilirubin 0.4 mg/dL 0.2-1.3 74 Total Protein 6.9 g/dL 6.3-8.2 74 WBC 5.7 K/ul 4.1-10.9 74 Laboratory test finding 05/16/2011 A/G Ratio 1.6 1.0-2.2 Absolute Basophils 0.045 K/ul 0.0-0.3 Absolute Eosinophils 0.074 K/ul 0.0-0.5 Absolute Lymphocytes 1.72 K/ul 0.8-4.8 Absolute Monocytes 0.386 K/ul 0.1-1.0 Absolute Neutrophils 4.32 K/ul 2.05-7.63 Albumin 4.1 g/dL 3.5-5.0 Alkaline Phosphatase 49 U/L 30-126 Alt 22 U/L 9-52 Amylase 35 U/L 18-98 Ast 20 U/L 14-36 BUN 10 mg/dL 7-18 BUN/CR Ratio 14.1 Ratio 12-20 Basophil 0.7 % 0-2 Calcium 9.1 mg/dL 8.7-10.5 Carbon Dioxide 26 mmol/L 22-30 Chloride 107 mmol/L 98-107 Creatinine, Serum 0.7 mg/dL 0.7-1.2 Eosinophil 1.1 % 0-4 Globulin 2.6 g/dL Low 2.7-4.3 Glucose 81 mg/dL 65-105 Hematocrit 40.9 % 37.0-51.0 Hemoglobin 13.3 GM/dl 12.0-16.0 Lipase,Serum 130 U/L 28-380 Lymphocytes 26.3 % 20-44 MCH 28.7 pg 26.0-32.0 MCHC 32.6 g/dL 31.0-36.0 MCV 88 FL 80-97 Monocytes 5.9 % 2-10.0 Neutrophils 66.0 % 50-70 Platelet Count 206 K/ul 140-440 Potassium 4.1 mmol/L 3.6-5.0 RBC 4.64 M/ul 4.2-6.3 RDW 11.3 % Low 11.5-14.5 Sodium 141 mmol/L 137-145 Total Bilirubin 0.5 mg/dL 0.2-1.3 Total Protein 6.7 g/dL 6.3-8.2 WBC 6.6 K/ul 4.1-10.9 Laboratory test finding 07/18/2010 Absolute Basophils 0.060 K/ul 0.0-0.3 74 Absolute Eosinophils 0.092 K/ul 0.0-0.5 74 Absolute Lymphocytes 1.50 K/ul 0.8-4.8 74 Absolute Monocytes 0.359 K/ul 0.1-1.0 74 Absolute Neutrophils 2.69 K/ul 2.05-7.63 74 Alt 28 U/L 9-52 74 Anion Gap 15 mmol/L 10-20 74 Ast 18 U/L 14-36 74 BUN 12 mg/dL 7-18 74 BUN/CR Ratio 17.0 Ratio 12-20 74 Basophil 1.3 % 0-2 74 Calcium 9.4 mg/dL 8.7-10.5 74 Carbon Dioxide 26 mmol/L 22-30 74 Chloride 108 mmol/L High 98-107 74 Creatinine, Serum 0.7 mg/dL 0.7-1.2 74 Eosinophil 2.0 % 0-4 74 Glucose 93 mg/dL 65-105 74 Hematocrit 39.9 % 37.0-51.0 74 Hemoglobin 13.7 GM/dl 12.0-16.0 74 Lymphocytes 32.0 % 20-44 74 MCH 29.9 pg 26.0-32.0 74 MCHC 34.3 g/dL 31.0-36.0 74 MCV 87 FL 80-97 74 Monocytes 7.6 % 2-10.0 74 Neutrophils 57.2 % 50-70 74 Platelet Count 223 K/ul 140-440 74 Potassium 4.5 mmol/L 3.6-5.0 74 RBC 4.58 M/ul 4.2-6.3 74 RDW 13.3 % 11.5-14.5 74 Sodium 145 mmol/L 137-145 74 TSH 0.799 uIU/ml 0.50-6.00 74 WBC 4.7 K/ul 4.1-10.9 74 Lipid Panel 07/18/2010 Chol/HDL Ratio 3.8 74, 76 Cholesterol 229 mg/dL High 50-199 74 HDL Cholesterol 59 mg/dL 29-86 74 LDL 150 mg/dL High 20-129 74 Triglycerides 102 mg/dL 30-249 74 VLDL Cholesterol 20 mg/dL 74 Laboratory test finding 04/25/2010 Gallbladder See Note 77 Laboratory test finding 04/19/2010 HCG Serum, Qualitative Negative 78 Laboratory test finding 11/02/2009 Endometrial Curettage See Note 79 Laboratory test finding 11/02/2009 HCG, Quant < 1.0 mIU/mL 80 Laboratory test finding 10/05/2009 CK 33 U/L 26-190 Troponin-I 0.0 ng/mL 0.0-0.6 81 LDL Cholesterol Profile 10/05/2009 Cholesterol 184 mg/dL 120-200 HDL Cholesterol 43 mg/dL 32-96 LDL-Cholesterol 122 mg/dL 62-185 Triglycerides 95 mg/dL 0-210 Laboratory test finding 10/04/2009 Act Partial Thrombo Time 27.5 s 23.4- 37.4 82 CK 38 U/L 26-190 Inr 1.0 0.8-1.2 83 Magnesium 1.8 mg/dL 1.7-2.3 Protime 13.7 s 11.7-15.1 Troponin-I 0.0 ng/mL 0.0-0.6 84 Laboratory test finding 09/05/2009 Anion Gap 11 mmol/L 10-20 74 BUN 12 mg/dL 7-18 74 BUN/CR Ratio 17.2 Ratio 12-20 74 Calcium 9.0 mg/dL 8.7-10.5 74 Carbon Dioxide 27 mmol/L 22-30 74 Chloride 104 mmol/L 98-107 74 Creatinine, Serum 0.7 mg/dL 0.7-1.2 74 Eosinophil% 1 % 0-5 74 Glucose 87 mg/dL 65-105 74 Helicobacter Pylori, Igg <0.9 U/mL 0.0-0.8 74, 85 Hematocrit 38.0 % 36.0-46.1 74 Hemoglobin 12.8 gm/dL 11.6-15.8 74 Lymph% 37 % 17-56 74 Mean Cell Volume 89.0 fl 80.9-99.0 74 Mean Corpuscular HGB 30.0 pg 25.9-32.7 74 Mean Corpuscular HGB Conc 33.7 g/dL 30.8-34.3 74 Mean Platelet Volume 10.7 fL 8.9-12.4 74 Monocyte% 2 % 0-10 74 Neutrophils% 60 % 33-73 74 Platelet Count 242 K/uL 155-360 74 Platelet Estimate Normal 74 Potassium 3.8 mmol/L 3.6-5.0 74 RBC Morphology Normal 74 Red Blood Count 4.27 M/uL 3.90-5.40 74 Red Cell Distri Width %CV 13.2 % 11.7-14.4 74 Sodium 138 mmol/L 137-145 74 Total Cells Counted 100 #CELLS 74 White Blood Count 5.7 K/uL 3.1-10.7 74 Hepatic Function 09/05/2009 Albumin 4.1 g/dL 3.5-5.0 74 Alkaline Phosphatase 49 U/L 30-126 74 Alt 11 U/L 9-52 74 Ast 22 U/L 14-36 74 Total Bilirubin 0.4 mg/dL 0.2-1.3 74 Total Protein 6.6 g/dL 6.3-8.2 74 Laboratory test finding 08/29/2009 Free T4 0.73 ng/dL Low 0.75-1.54 86 TSH 1.125 uIU/ml 0.50-6.00 86 Laboratory test finding 08/29/2009 Triiodothyronine,Total 114 ng/dL 71- 180 87 Vitamin D,25-Hydroxy 33.3 ng/mL 32.0-100.0 88 Lipid Panel 07/15/2009 Chol/HDL Ratio 3.8 86, 89 Cholesterol 224 mg/dL High 50-199 86 HDL Cholesterol 58 mg/dL 29-86 86 LDL 147 mg/dL High 20-129 86 Triglycerides 93 mg/dL 30-249 86 VLDL Cholesterol 19 mg/dL 86 Laboratory test finding 07/15/2009 Absolute Basophils 0.063 K/ul 0.0-0.3 86 Absolute Eosinophils 0.159 K/ul 0.0-0.5 86 Absolute Lymphocytes 1.94 K/ul 0.8-4.8 86 Absolute Monocytes 0.543 K/ul 0.1-1.0 86 Absolute Neutrophils 4.79 K/ul 2.05-7.63 86 Anion Gap 13 mmol/L 10-20 86 BUN 11 mg/dL 7-18 86 BUN/CR Ratio 15.4 Ratio 12-20 86 Basophil 0.8 % 0-2 86 Calcium 9.5 mg/dL 8.7-10.5 86 Carbon Dioxide 27 mmol/L 22-30 86 Chloride 106 mmol/L 98-107 86 Creatinine, Serum 0.7 mg/dL 0.7-1.2 86 Eosinophil 2.1 % 0-4 86 Glucose 79 mg/dL 65-105 86 Hematocrit 40.1 % 37.0-51.0 86 Hemoglobin 13.7 GM/dl 12.0-16.0 86 Lymphocytes 25.9 % 20-44 86 MCH 31.1 pg 26.0-32.0 86 MCHC 34.3 g/dL 31.0-36.0 86 MCV 91 FL 80-97 86 Monocytes 7.2 % 2-10.0 86 Neutrophils 63.9 % 50-70 86 Platelet Count 219 K/ul 140-440 86 Potassium 3.9 mmol/L 3.6-5.0 86 RBC 4.42 M/ul 4.2-6.3 86 RDW 11.7 % 11.5-14.5 86 Sodium 142 mmol/L 137-145 86 TSH 0.849 uIU/ml 0.50-6.00 86 WBC 7.5 K/ul 4.1-10.9 86 Laboratory test finding 04/21/2009 D-Dimer, Quantitative 0.28 ug/mL 90 Laboratory test finding 04/20/2009 Culture Urine <see comment> 91 Laboratory test finding 04/15/2009 Eosinophil% 2 % 0-5 Hematocrit 41.3 % 36.0-46.1 Hemoglobin 13.9 gm/dL 11.6-15.8 Lymph% 31 % 17-56 Mean Cell Volume 88.8 fl 80.9-99.0 Mean Corpuscular HGB 29.9 pg 25.9-32.7 Mean Corpuscular HGB Conc 33.7 g/dL 30.8-34.3 Mean Platelet Volume 11.4 fL 8.9-12.4 Monocyte% 5 % 0-10 Neutrophils% 62 % 33-73 Platelet Count 222 K/uL 155-360 Platelet Estimate Normal RBC Morphology Normal Red Blood Count 4.65 M/uL 3.90-5.40 Red Cell Distri Width %CV 12.5 % 11.7-14.4 Total Cells Counted 100 #CELLS White Blood Count 7.1 K/uL 3.1-10.7 Laboratory test finding 04/15/2009 A/G Ratio 1.6 1.0-2.2 Albumin 4.3 g/dL 3.5-5.0 Alkaline Phosphatase 61 U/L 30-126 Alt 14 U/L 9-52 Ast 24 U/L 14-36 BUN 11 mg/dL 7-18 BUN/CR Ratio 17.5 Ratio 12-20 Calcium 9.1 mg/dL 8.7-10.5 Carbon Dioxide 26 mmol/L 22-30 Chloride 105 mmol/L 98-107 Creatinine, Serum 0.6 mg/dL Low 0.7-1.2 Globulin 2.6 g/dL Low 2.7-4.3 Glucose 81 mg/dL 65-105 Potassium 3.8 mmol/L 3.6-5.0 Sodium 140 mmol/L 137-145 Total Bilirubin 0.5 mg/dL 0.2-1.3 Total Protein 7.0 g/dL 6.3-8.2 Laboratory test finding 04/18/2007 Gastrin, Serum 32 pg/mL 0-115 Laboratory test finding 03/27/2007 Gastrin, Serum 458 pg/mL High 0-115 Laboratory test finding 02/13/2007 Rapid Urease Negative Laboratory test finding 12/14/2006 CK 21 U/L Low 26-190 Troponin-I 0.0 ng/mL 0.0-0.6 92 Laboratory test finding 12/13/2006 CK 26 U/L 26-190 Troponin-I 0.0 ng/mL 0.0-0.6 93 Laboratory test finding 12/13/2006 Anion Gap 12 mEq/L 8-16 BUN 9 mg/dL 5-23 BUN/Creat 12.8 Bas% 0.4 % 0.1-1.0 Baso # 0.0 K/uL Low 0.1-0.2 CK 36 U/L 26-190 Calcium 8.9 mg/dL 8.5-10.1 Carbon Dioxide 27 mEq/L 21-32 Chloride 104 mEq/L 98-107 Creatinine 0.7 mg/dL 0.5-1.4 Eo% 0.4 % 0.0-5.0 Eos # 0.0 K/uL 0.0-0.5 Glucose 87 mg/dL 76-115 Hematocrit 39.9 % 34.0-46.0 Hemoglobin 14.1 gm/dL 11.5-15.5 [place]# 0.1 0.0-1.5 [place]% 0.9 % 0.0-4.0 Lymph # 1.5 K/uL 1.2-4.0 Lymph % 16.1 % Low 17.0-56.0 Mean Cell Volume 86.6 fL 80.0-96.0 Mean Corpuscular HGB 30.5 pg 27.0-33.0 Mean Corpuscular HGB Conc 35.3 g/dL 31.7-36.0 Mean Platelet Volume 7.3 fl 6.6-10.6 [place] # 0.5 K/uL 0.0-0.6 [place] % 4.8 % 0.0-10.0 Neut# 7.4 K/uL High 1.8-7.0 Neut% 77.4 % High 33.0-73.0 Platelet Count 204 K/uL 150-400 Potassium 3.7 mEq/L 3.5-5.1 Red Blood Count 4.61 M/uL 3.90-5.20 Red Cell Distri Width %CV 12.9 % 11.6-15.8 Sodium 139 mEq/L 136-145 Troponin-I 0.0 ng/mL 0.0-0.6 94 White Blood Count 9.6 K/uL 3.4-10.5 Laboratory test finding 08/29/2006 Absolute Basophils 0.02 K/ul 0.0-0.3 Absolute Eosinophils 0.06 K/ul 0.0-0.5 Absolute Lymphocytes 1.46 K/ul 0.8-4.8 Absolute Monocytes 0.32 K/ul 0.1-1.0 Absolute Neutrophils 3.98 K/ul 2.05-7.63 Anion Gap 11 mmol/L 10-20 BUN 9 mg/dL 7-18 BUN/CR Ratio 12.2 Ratio 12-20 Basophil 0.4 % 0-2 Calcium 9.7 mg/dL 8.7-10.5 Carbon Dioxide 27 mmol/L 22-30 Chloride 104 mmol/L 98-107 Creatinine, Serum 0.7 mg/dL 0.7-1.2 Eosinophil 1.1 % 0-4 Glucose 86 mg/dL 65-105 Hematocrit 39.2 % 37.0-51.0 Hemoglobin 13.6 GM/dl 12.0-16.0 Lymphocytes 25.0 % 20-44 MCH 29.9 pg 26.0-32.0 MCHC 34.8 g/dL 31.0-36.0 MCV 86 FL 80-97 Monocytes 5.4 % 2-10.0 Neutrophils 68.1 % 50-70 Platelet Count 207 K/ul 140-440 Potassium 4.0 mmol/L 3.6-5.0 RBC 4.56 M/ul 4.2-6.3 RDW 11.4 % Low 11.5-14.5 Sodium 139 mmol/L 137-145 TSH 1.746 uIU/ml 0.50-6.00 WBC 5.8 K/ul 4.1-10.9 Hepatic Function 08/29/2006 Albumin 4.1 g/dL 3.5-5.0 Alkaline Phosphatase 62 U/L 38-126 Alt 32 U/L 9-52 Ast 26 U/L 14-36 Total Bilirubin 0.5 mg/dL 0.2-1.3 Total Protein 6.7 g/dL 6.3-8.2 Laboratory test finding 08/29/2006 Helicobacter Pylori, Igg <0.9 U/mL 0.0 -0.8 95 Laboratory test finding 01/25/2006 3 Hour GTT normal 96 Laboratory test finding 01/25/2006 Free T4 0.95 ng/dL 0.75-1.54 TSH 1.025 uIU/ml 0.50-6.00 Laboratory test finding 01/16/2006 Anion Gap 12 mmol/L 10-20 97 BUN 13 mg/dL 7-18 97 BUN/CR Ratio 16.9 Ratio 12-20 97 Calcium 8.9 mg/dL 8.7-10.5 97 Carbon Dioxide 25 mmol/L 22-30 97 Chloride 106 mmol/L 98-107 97 Creatinine, Serum 0.8 mg/dL 0.7-1.2 97 Glucose 92 mg/dL 65-105 97 Hematocrit 40.6 % 34.0-46.0 97 Hemoglobin 13.7 gm/dL 11.5-15.5 97 Mean Cell Volume 87.7 fL 80.0-96.0 97 Mean Corpuscular HGB 29.6 pg 27.0-33.0 97 Mean Corpuscular HGB Conc 33.8 g/dL 31.7-36.0 97 Mean Platelet Volume 7.9 fl 6.6-10.6 97 Platelet Count 215 K/uL 150-400 97 Potassium 4.1 mmol/L 3.6-5.0 97 Red Blood Count 4.63 M/uL 3.90-5.20 97 Red Cell Distri Width %CV 12.9 % 11.6-15.8 97 Sodium 139 mmol/L 137-145 97 White Blood Count 5.5 K/uL 3.4-10.5 97 Lipid Panel 01/16/2006 Chol/HDL Ratio 2.85 97, 98 Cholesterol 205 mg/dL High 50-199 97 HDL Cholesterol 72 mg/dL 29-86 97 LDL 120 mg/dL 20-129 97 Triglycerides 67 mg/dL 30-249 97 VLDL Cholesterol 13 mg/dL 97 Laboratory test finding 08/16/2005 Helicobacter Pylori, Igg <0.9 U/mL 0.0 -0.8 99 1 HIV COMBO TO BE PERFORMED AT [facility] RESULTS TO FOLLOW prior to physical in 6 mos 2 Updated reference range on new analyzer 3 Updated reference range on new analyzer 4 Concerning GFR Guidelines for Americans: Normal function or mild renal disease, if clinically at risk: >/=60 mL/min Moderately decreased: 30-59 Severely decreased: 15-29 Renal failure: <15 5 Concerning GFR Guidelines: Normal function or mild renal disease, if clinically at risk: >/=60 mL/min Moderately decreased: 30-59 Severely decreased: 15-29 Renal failure: <15 Glomerular Filtration Rate (GFR) is estimated based on the MDRD equation, which assumes a steady state for creatinine as recommended by the National Kidney Disease Education Program in conjunction with the National Institutes of Health and the National Kidney Foundation. Clinical conditions in which it may be necessary to measure GFR by using clearance methods include extremes of age and body size, severe malnutrition or obesity, diseases of skeletal muscle, paraplegia or quadriplegia, vegetarian diet, rapidly changing kidney function, and calculation of the dose of potentially toxic drugs that are excreted by the kidneys. 6 Updated Reference Range 7 Prolactin Female Normal Values: Pre-menopausal: 3.3-26.7 ng/mL Post-menopausal:2.7-19.6 ng/mL 8 Per NCEP ATP III Guidelines: Results lower than 40 mg/dL are suggestive of increased risk for coronary artery disease. Results > or=to 60 mg/dL are considered a negative risk factor. 9 Per NCEP ATP III Guidelines: Normal Population <130 Patients with medical conditions: CHD/DM Optimal: <100 Borderline high: 130-159 High: 160-189 Very high: >189 10 F41.1 E22.9 [id number] 11 Note: Persistent reduction for 3 months or more in an eGFR <60 mL/min/1.73 m2 defines CKD. Patients with eGFR values >/=60 mL/min/1.73 m2 may also have CKD if evidence of persistent proteinuria is present. The original MDRD equation for estimated GFR is not valid for patients less than 18 years of age. Additional information may be found at www.kdoqi.org. 12 Vitamin D deficiency has been defined by the [place] [employer] and an Endocrine Society practice guideline as a level of serum 25-OH vitamin D less than 20 ng/mL (1,2). The Endocrine Society went on to further define vitamin D insufficiency as a level between 21 and 29 ng/mL (2). 1. IOM ([place] of [employer]). 2010. Dietary reference intakes for calcium and D. [place]: The National Academies Press. 2. Vincent MF, Katelynn ARGUELLES, Christal FLETCHER, et al. Evaluation, treatment, and prevention of vitamin D deficiency: an Endocrine Society clinical practice guideline. JCEM. 2010; 96(7):1911-30. Performed at: RN - [facility] [address] [id number] [employer] Operator: Maggi Kate MD, Phone: [phone] 13 Non- ..... 2.2-30.3 ng/mL ......... 8.1-347.6 ng/mL Post-Menopausal .. 0.7-31.5 ng/mL 14 dizziness 15 Note: Persistent reduction for 3 months or more in an eGFR <60 mL/min/1.73 m2 defines CKD. Patients with eGFR values >/=60 mL/min/1.73 m2 may also have CKD if evidence of persistent proteinuria is present. The original MDRD equation for estimated GFR is not valid for patients less than 18 years of age. Additional information may be found at [email or web address]. 16 SPECIMEN DESCRIPTION STOOL RESULT NEGATIVE FOR H. PYLORI ANTIGEN BY EIA REPORT STATUS FINAL 10/14/2016 17 R74.0,R19.7 18 Values below the stated reference ranges of AST and ALT can be seen in normal populations. Clinical correlation is suggested. 19 Note: Persistent reduction for 3 months or more in an eGFR <60 mL/min/1.73 m2 defines CKD. Patients with eGFR values >/=60 mL/min/1.73 m2 may also have CKD if evidence of persistent proteinuria is present. The original MDRD equation for estimated GFR is not valid for patients less than 18 years of age. Additional information may be found at www.[email or web address]. 20 BACK [place] SAT,BODY ACHES,DIARRHEA 21 NO ENTERIC PATHOGENS ISOLATED 22 ................................................... 23 INCLUDES TESTING FOR SALMONELLA, SHIGELLA, AEROMONAS, 24 PLESIOMONAS, CAMPYLOBACTER, AND E. COLI 0157:H7 25 ................................................... 26 YERSINIA AND VIBRIO ARE NOT ROUTINELY SCREENED FOR AND 27 SHOULD BE REQUESTED SEPARATELY 28 SHIGA TOXIN 1 NOT DETECTED 29 SHIGA TOXIN 2 NOT DETECTED 30 0.0 - 0.045 ng/mL: Normal 0.046 - 0.5 ng/mL: Suggestive 0.6 - 1.5 ng/mL: Consistent 31 Note: Persistent reduction for 3 months or more in an eGFR <60 mL/min/1.73 m2 defines CKD. Patients with eGFR values >/=60 mL/min/1.73 m2 may also have CKD if evidence of persistent proteinuria is present. The original MDRD equation for estimated GFR is not valid for patients less than 18 years of age. Additional information may be found at www.[email or web address]. 32 <=0.49 ug/mL - Low likelihood of DIC, DVT or Pulmonary Embolism >0.49 ug/mL - Additional testing should be done to rule out DIC, DVT, or Pulmonary embolism as clinically indicated. ([facility] has established a 97.89% negative predictive value for thrombotic disease when a cutoff value of 0.5 ug/mL is used.) 33 NEGATIVE FOR C. DIFFICILE TOXIN A/B. CORRELATE RESULTS WITH CLINICAL CONDITION. 34 NEGATIVE FOR CRYPTOSPORIDIUM SPECIFIC ANTIGEN 35 NEGATIVE FOR GIARDIA SPECIFIC ANTIGEN. The specimen will be held for 5 days. Additional testing may be performed upon request if the antigen tests are negative, and the patient is still symptomatic or has traveled to an endemic region. 36 FIRST MORNING SPECIMENS GENERALLY CONTAIN THE HIGHEST CONCENTRATION OF HCG AND ARE RECOMMENDED FOR EARLY DETECTION OF . 37 URINE, CLEAN CATCH 38 PATS WAIVED N92.0,D25.9 12356 39 Tests: A1C Instructions: 40 FIRST MORNING SPECIMENS GENERALLY CONTAIN THE HIGHEST CONCENTRATION OF HCG AND ARE RECOMMENDED FOR EARLY DETECTION OF . 41 Elevated levels of HbA1c suggest the need for more aggressive treatment of glycemia. The [place] Diabetes Association recommends that a primary goal of therapy should be a HbA1c of <7% and that physicians should re-evaluate the treatment regimen in patients with HbA1c values consistently >8%. 42 N93.9 43 URINE, CLEAN CATCH 44 MIXED URETHRAL DISHA 45 10,000 - 50,000 CFU/mL 46 11:00 03/19/16 57064,04532,02141 N92.0,D25.9 47 FIRST MORNING SPECIMENS GENERALLY CONTAIN THE HIGHEST CONCENTRATION OF HCG AND ARE RECOMMENDED FOR EARLY DETECTION OF . 48 Note: Persistent reduction for 3 months or more in an eGFR <60 mL/min/1.73 m2 defines CKD. Patients with eGFR values >/=60 mL/min/1.73 m2 may also have CKD if evidence of persistent proteinuria is present. The original MDRD equation for estimated GFR is not valid for patients less than 18 years of age. Additional information may be found at www.[email or web address]. 49 OPERATION/PROCEDURE U/S guided hysteroscopy, D+C DIAGNOSIS: "UTERUS, ENDOMETRIUM, CURETTAGE": - STROMAL FRAGMENTS, COMPATIBLE WITH LEIOMYOMA. - WEAKLY PROLIFERATIVE ENDOMETRIUM WITH TUBAL METAPLASIA. - NO EVIDENCE OF HYPERPLASIA OR MALIGNANCY. EP/clf 1015 GROSS Received in formalin in an appropriately labeled container with the patient' s name and accession number designated, "ENDOMETRIAL CURETTINGS". The specimen consists of several pieces of soft oliveros-red tissue measuring 3.6 x 1.5 x 0.8 cm. in aggregate. Submitted entirely, one cassette. /clf PRE OPERATIVE DIAGNOSIS Excessive and frequent menses, abnormal uterine bleeding. REVIEW CODE CODE: I Signed Electronically signed Arden MARIO MD [id number] 50 FIRST MORNING SPECIMENS GENERALLY CONTAIN THE HIGHEST CONCENTRATION OF HCG AND ARE RECOMMENDED FOR EARLY DETECTION OF . 51 Reference range: <=0.8 INTERPRETIVE INFORMATION: Helicobacter Pylori Ab, IgM 0.8 EV or Less .......... Negative: No significant level of IgM antibody to H.pylori detected. 0.9-1.1 EV .............. Equivocal: Repeat testing in 10-14 days may be helpful. 1.2 EV or Greater ....... Positive: IgM antibody to H. pylori detected, suggestive of an active infection. Gastric colonization by Helicobacter pylori has been implicated in the development of some cases of gastritis and peptic or duodenal ulcer. The clinical utility of H. pylori antibody, IgM measurement has not been clearly established. For additional information, refer to Helicobacter pylori topic at [employer] Test developed and characteristics determined by [facility]. See Compliance Statement B: [facility] Performed by [facility], [address] [place] [id number] [email or web address], Mike Chakraborty MD, Lab. Director Unless otherwise specified, testing performed by [facility] [address] [place] [id number] 52 < 0.90 NEGATIVE > 0.89 AND < 1.09 INDETERMINATE > 1.09 POSITIVE Unless otherwise specified, testing performed by [facility] [address] [place] [id number] 53 ADDED TO C93 54 Note: Persistent reduction for 3 months or more in an eGFR <60 mL/min/1.73 m2 defines CKD. Patients with eGFR values >/=60 mL/min/1.73 m2 may also have CKD if evidence of persistent proteinuria is present. The original MDRD equation for estimated GFR is not valid for patients less than 18 years of age. Additional information may be found at www.kdoqi.org. 55 0.0 - 0.045 ng/mL: Normal 0.046 - 0.5 ng/mL: Suggestive 0.6 - 1.5 ng/mL: Consistent 56 03/22/15 LAB.PLW NOT INDICATED PER [facility] 57 Concerning GFR Guidelines for Americans: Normal function or mild renal disease, if clinically at risk: >/=60 mL/min Moderately decreased: 30-59 Severely decreased: 15-29 Renal failure: <15 58 Concerning GFR Guidelines: Normal function or mild renal disease, if clinically at risk: >/=60 mL/min Moderately decreased: 30-59 Severely decreased: 15-29 Renal failure: <15 Glomerular Filtration Rate (GFR) is estimated based on the MDRD equation, which assumes a steady state for creatinine as recommended by the National Kidney Disease Education Program in conjunction with the National Institutes of Health and the National Kidney Foundation. Clinical conditions in which it may be necessary to measure GFR by using clearance methods include extremes of age and body size, severe malnutrition or obesity, diseases of skeletal muscle, paraplegia or quadriplegia, vegetarian diet, rapidly changing kidney function, and calculation of the dose of potentially toxic drugs that are excreted by the kidneys. 59 OPERATION/PROCEDURE U/S guided hysteroscopy DIAGNOSIS: "ENDOMETRIAL CURETTINGS": ENDOMETRIAL POLYP. Za INTERPRETATION COMMENT No recent biopsy is available to be reviewed. GROSS "ENDOMETRIAL CURETTINGS". The specimen is received in an appropriately labeled container. This contains approximately 1.0 mL of pink tissue admixed with mucus. Filtered and submitted in toto within a single cassette. JW/clf MICROSCOPIC Sections show fragments of tissue composed of endometrial glands. The stroma is collagenized and fibrous. The glands are cystically dilated, occasionally branching lined by slightly stratified to single layer of columnar cells. The central portion has thick-walled coiled blood vessels. There are histologically unremarkable myometrial, endocervical and squamous tissue. PRE OPERATIVE DIAGNOSIS Post coital bleeding REVIEW CODE CODE: I ----- TRANG Bingham MD 07/22/13 1356 ----- 60 FIRST MORNING SPECIMENS GENERALLY CONTAIN THE HIGHEST CONCENTRATION OF HCG AND ARE RECOMMENDED FOR EARLY DETECTION OF . 61 07/20/13 LAB.DWM Deleted by Reflex Group [facility] [place] 62 Note: Persistent reduction for 3 months or more in an eGFR <60 mL/min/1.73 m2 defines CKD. Patients with eGFR values >/=60 mL/min/1.73 m2 may also have CKD if evidence of persistent proteinuria is present. The original MDRD equation for estimated GFR is not valid for patients less than 18 years of age. Additional information may be found at www.[email or web address]. 63 <=0.49 ug/mL - Low likelihood of DIC, DVT or Pulmonary Embolism >0.49 ug/ mL - Additional testing should be done to rule out DIC, DVT, or Pulmonary embolism as clinically indicated. ([facility] has established a 97.89% negative predictive value for thrombotic disease when a cutoff value of 0.5 ug/mL is used.) 64 Note: Persistent reduction for 3 months or more in an eGFR <60 mL/min/1.73 m2 defines CKD. Patients with eGFR values >/=60 mL/min/1.73 m2 may also have CKD if evidence of persistent proteinuria is present. The original MDRD equation for estimated GFR is not valid for patients less than 18 years of age. Additional information may be found at www.kdoqi.org. 65 ADDED TO CHEMS 66 0 - 0.5 ng/mL: No evidence of myocardial injury 0.6 - 1.4 ng/mL: Mild elevation, suggesting possible myocardial injury > 1.4 ng/mL: Consistent with myocardial injury 67 Performed at: [facility] [address] [place], [place] [id number] [employer] Operator: Garrett Barber MD, Phone: [phone] 68 H. pylori Stool Ag, EIA Negative Reference=Negative Testing Performed By: [facility], [address] [place] [id number] 69 cups, directions and req given to pt 12/12/11 70 Negative 0 - 19 Weak Positive 20 - 30 Moderate to Strong Positive >30 71 Negative 0 - 19 Weak Positive 20 - 30 Moderate to Strong Positive >30 72 Negative 0 - 3 Weak Positive 4 - 10 Positive >10 Tissue Transglutaminase ( tTG) has been identified as the endomysial antigen. Studies have demonstr- ated that endomysial IgA antibodies have over 99% specificity for gluten sensitive enteropathy. 73 Negative 0 - 5 Weak Positive 6 - 9 Positive >9 Performed at: [facility] [address] [place], [place] [id number] [employer] Operator: Garrett Barber MD, Phone: [phone] 74 FASTING 75 Normal Range: Male: <4.98 Female: <4.45 76 Normal Range: Male: <4.98 Female: <4.45 77 OPERATION/PROCEDURE Cholecystectomy and contents DIAGNOSIS: "GALLBLADDER": CHRONIC CHOLECYSTITIS AND CHOLESTEROLOSIS. NO EVIDENCE OF DYSPLASIA NOR NEOPLASIA APPRECIATED. ROB/savanna GROSS Received in formalin labeled, "GALLBLADDER AND CONTENTS" is a 6.3 x 2.8 x 2.6 cm. oliveros- pink soft gallbladder with a smooth serosal surface. Upon opening it contains approximately 10 mL of oliveros-brown thick bile. No stones are seen. The wall of the gallbladder measures up to 0.1 cm. in thickness, the mucosa is oliveros-brown bubbly with sparse ardon streaks. No tumor, necrosis nor hemorrhage is seen. Entry Level Civil Engineer sections are submitted in one block. /geethaf MICROSCOPIC Sections show gallbladder mucosa lined by columnar epithelium with focal synechia, and Rokitansky-Aschoff sinus formation. The submucosa has a mild infiltrate of lymphocytes and plasma cells. Foamy histiocytes are noted within the tips of papillae. The muscular wall is slightly fibrotic and hypertrophied. PRE OPERATIVE DIAGNOSIS Biliary dyskinesia REVIEW CODE CODE: I ----- TRANG Bingham MD 04/26/10 ----- 78 QUERY: @[facility] Pat ID: QUERY: @[facility] Req #: 79 OPERATION/PROCEDURE Removal IUD; hysteroscopy; D&C DIAGNOSIS: "ENDOMETRIAL CURETTINGS & POLYPS": DISORDERED PROLIFERATIVE ENDOMETRIUM, PROBABLE POLYP. ROXANA/kemal 1208 GROSS Received in formalin labeled "ENDOMETRIAL CURETTINGS & POLYPS" is approximately 2.0 cc. of oliveros brown soft tissue submitted in toto in one block. ROB/kemal MICROSCOPIC Sections reveal cytologically bland, pseudostratified, proliferative, mitotically active epithelium having a slightly increased voisob-kq-mrefslv ratio. The glands show shallow budding focally, but overall are tubular, narrow caliber, within abundant stroma. PRE OPERATIVE DIAGNOSIS Menometrorrhagia; endometrial polyp REVIEW CODE CODE: I ----- GABRIEL Monroy MD 11/03/09 ----- 80 APPROXIMATE GESTATIONAL AGE AND BHCG RANGE 0-1 WEEK.......................1 -50 mIU/mL 1-2 WEEKS....................40-300 mIU/mL 2-3 WEEKS.................100-1,000 mIU/mL 3-4 WEEKS.................500-6,000 mIU/mL 1-2 MONTHS............5,000-200,000 mIU/mL 2-3 MONTHS...........10,000-100, 000 mIU/mL 2nd TRIMESTER..........3,000-50,000 mIU/mL 3rd TRIMESTER..........1,000-50,000 mIU/mL 81 0 - 0.6 NG/ML: NO EVIDENCE OF MYOCARDIAL INJURY 0.7 - 1.5 NG/ML: MILD ELEVATION, SUGGESTING POSSIBLE MYOCARDIAL INJURY > 1.5 NG/ML: CONSISTENT WITH MYOCARDIAL INJURY 82 IS PATIENT ON HEPARIN PROTOCOL ? N IS PATIENT ON ANTICOAGULANTS? UNKNOWN QUERY: Anticoagulant Therapy? QUERY: Date of Last Dose: QUERY: Time of Last Dose: 83 THERAPEUTIC INR RANGE: 2.0 - 3.0 DVT, Pulmonary embolus, prophylaxis against venous thrombosis or systemic embolization in high risk patients. 2.5 - 3.5 Mechanical heart valves 84 0 - 0.6 NG/ML: NO EVIDENCE OF MYOCARDIAL INJURY 0.7 - 1.5 NG/ML: MILD ELEVATION, SUGGESTING POSSIBLE MYOCARDIAL INJURY > 1.5 NG/ML: CONSISTENT WITH MYOCARDIAL INJURY 85 Negative <0.9 Indeterminate 0.9 - 1.0 Positive >1.0 86 FASTING today 87 FASTING today 88 Recent studies consider the lower limit of 32.0 ng/mL to be a threshold for optimal health. Miguel NUNN. J Nutr. 2004;135(2):317-22. 89 Normal Range: Male: <4.98 Female: <4.45 90 Note: [facility] has established a 97.89% negative predictive value for thrombotic disease when a cutoff value of 0.5 ug/mL is used. Additional performance parameters for local prevalence of 94.4% as follows: PPV: 9.92%, Sensitivity: 76.47%, Specificity: 61.12% 91 COLONY COUNT ! 5,000 - 10,000 CFU/ml Organism 1 ! URETHRAL DISHA 92 0 - 0.6 NG/ML: NO EVIDENCE OF MYOCARDIAL INJURY 0.7 - 1.5 NG/ML: MILD ELEVATION, SUGGESTING POSSIBLE MYOCARDIAL INJURY > 1.5 NG/ML: CONSISTENT WITH MYOCARDIAL INJURY 93 0 - 0.6 NG/ML: NO EVIDENCE OF MYOCARDIAL INJURY 0.7 - 1.5 NG/ML: MILD ELEVATION, SUGGESTING POSSIBLE MYOCARDIAL INJURY > 1.5 NG/ML: CONSISTENT WITH MYOCARDIAL INJURY 94 0 - 0.6 NG/ML: NO EVIDENCE OF MYOCARDIAL INJURY 0.7 - 1.5 NG/ML: MILD ELEVATION, SUGGESTING POSSIBLE MYOCARDIAL INJURY > 1.5 NG/ML: CONSISTENT WITH MYOCARDIAL INJURY 95 Negative <0.9 Indeterminate 0.9 - 1.0 Positive >1.0 96 FASTING GLUCOSE 96 mg/dL 1 HR GLUCOSE 134 mg/dL 2 HR GLUCOSE 76 mg/dL 3 HR GLUCOSE 76 mg/dL FAST URINE GLU NEGATIVE % 1HR URINE GLU 1/4 (H) % 2HR URINE GLU 1/ 10 (H) % 3HR URINE GLU NEGATIVE % FAST URINE KET NEGATIVE 1HR URINE KET NEGATIVE 2HR URINE KET NEGATIVE 3HR URINE KET NEGATIVE 97 FASTING 98 Normal Range: Male: <4.98 Female: <4.45 99 Negative <0.9 Indeterminate 0.9 - 1.0 Positive >1.0 Procedures Date CPT Code Description Status Comment 03/06/2018 47617 Brief Emotional/Behav Assessment Completed W/ Scoring Doc Per Standard Inst 11/08/2017 Colonoscopy Completed repeat in 5 years Document: 11/08/17 - ColonoscopyDocument: 11/08/17 - Surgical Pathology Reports 04/23/2017 Mammogram Completed 03/30/2014 69394 Mammography Unilateral Completed 08/29/2009 48682 Measure Blood Oxygen Level Completed Single Determination 08/29/2009 76950 Electrocardiogram Complete Completed 08/02/2009 00660 Colonoscopy Flexible Diagnostic Completed 09/11/2007 67721 Measure Blood Oxygen Level Completed Single Determination 05/26/2007 14750 Mammography Unilateral Completed 09/06/2006 80285 Mammography Unilateral Completed 02/18/2006 23781 Duplex Scan Extracranial Completed Arteries, Complete Bilateral Study 02/18/2006 70748 Doppler Color Flow Velocity Completed Mapping 02/18/2006 21149 Doppler Echocardiography Completed Complete 02/18/2006 12460 ECHO Complete W/O Spectral Or Completed Color Doppler 01/17/2006 22809 Holter Physician Review&Interp Completed 48 HRS 08/18/2004 80291 Cardiovascular Stress Test Completed Interpretation & Report Only 08/18/2004 07797 Cardiovascular Stress Test Completed Physician Supervision Only Encounters Type Date Location Provider CPT E/M Dx Office Visit 11/22/2017 4:00p [facility] [place] [address] J01.10 Z68.28 Office Visit 08/22/2017 10:00a [facility] [place] [address] J06.9 Office Visit 08/08/2017 4:00p [facility] [place] [address] K58.9 J30.9 F41.1 R00.2 E22.9 Z13.220 D80.2 Office Visit 07/09/2017 4:15p [facility] [place] [address] E22.9 K58.9 J30.9 F41.1 R00.2 E55.9 Office Visit 04/01/2017 4:00p [facility] [place] [address] K58.9 J30.9 F41.1 R00.2 E22.9 S82.402A Office Visit 10/12/2016 3:15p [facility] Chapitofranklin IsabellaLEVAR [address] K29.00 Office Visit 09/27/2016 3:45p [facility] [place] [address] E22.9 K58.9 J30.9 F41.1 R00.2 R74.0 Office Visit 09/04/2016 3:45p [facility] [place] [address] R19.7 R74.0 Office Visit 07/14/2016 10:15a [facility] [place] [address] J06.9 Office Visit 12/30/2015 11:00a [facility] [place] [address] R00.2 F41.1 J30.9 K58.9 E22.1 Office Visit 07/15/2015 3:00p [facility] [place] [address] K58.9 J30.9 F41.1 Office Visit 05/09/2015 8:00a [facility] [place] [address] M54.31 Office Visit 04/05/2015 3:15p [facility] [place] [address] B96.81 Office Visit 03/29/2015 2:00p [facility] [place] [address] R07.89 R10.13 Office Visit 01/24/2015 9:30a [facility] [place] [address] 564.1 477.9 300.02 785.1 Office Visit 11/17/2014 11:00a [facility] [place] [address] 787.91 719.68 Office Visit 08/16/2014 3:30p [facility] [place] [address] 564.1 477.9 300.02 785.1 Plan of Care Future Appointment(s):03/02/2019 9:30 am - Schedule, Laboratory at [facility]2018 3:30 pm - Phuong Sotelo MD at [facility]03/06/2018 - Phuong Sotelo MDZ00.00 Encntr for general adult medical exam w/o abnormal findingsComments:annual physical doneFollow up:1 year annual physical - check labs mznbyU86.9 Irritable bowel syndrome without diarrheaComments:uses generic nexium as needed - doing ok - follows with GIJ30.9 Allergic rhinitis, unspecifiedComments:uses flonase and claritin daily and this is working well.F41.1 Generalized anxiety disorderNew Labs:CBC with Auto Diff-fcmgComprehensive Metabolic-RLTSHComments: on no medication and doing ok - has not used kaqjrgnzvuF73.2 PalpitationsComments:manageable without medication - she uses relaxation strategies. 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 You are close. counseled about diet and exercise.Z13.89 Encounter for screening for other disorderComments:screening for depression is negative PHQ-2=0Z71.9 Counseling, unspecifiedComments:recommend a shingles vaccine at the pharmacy. Also, please have your flu vaccine done at your pharmacy after labor dayM54.2 CervicalgiaNew Medication:Cyclobenzaprine HCL 10 mgComments:exam is completely normal. this may be spasm of the left sternocleidomastoid muscle. will give muscle relaxer to take at bedtime for 1 week to relieve the tension.Z68.28 Body mass index (BMI ) 28.0-28.9, adultComments:The BMI is the ratio of height to weight. Weight loss is desirable. your goal BMI is between 18.9 and 25. Your are overweight. work on improving your diet to help with weight loss.
[2018-03-21] MEDS ORDERED: Ibuprofen ADULT LIQ* 600 MG/30 ML UDC PO ONE (14:28)
--- NOTE | 2018-03-21 14:28 | UC ---
UC General HPI - HPI Summary HPI Summary: Patient complains of being sick for 2 days. It began with a sore throat which she still has but she now has sinus congestion and pressure along with cough and chest congestion. She also reports having body aches and fever. She denies any shortness of breath or wheezing. - History of Current Complaint Stated Complaint: SORE THROAT FEVER CHILLS BODYACHES Time Seen by Provider: 03/21/18 14:09 Hx Obtained From: Patient Hx Last Menstrual Period: 09/21/15 Onset/Duration: Gradual Onset Pain Intensity: 7 Associated Signs & Symptoms: Positive: Cough, Fever - Allergy/Home Medications Allergies/Adverse Reactions: Allergies Allergy/AdvReac Type Severity Reaction Status Date / Time amoxicillin [From Augmentin] Allergy Nausea GI Verified 03/21/18 14:11 upset diarrhea clavulanic acid Allergy Nausea, GI Verified 03/21/18 14:11 [From Augmentin] upset, diarrhea PMH/Surg Hx/FS Hx/Imm Hx - Additional Past Medical History Additional PMH: allergies - Surgical History Surgical History: Yes Surgery Procedure, Year, and Place: gall bladder removal, left leg fx with metal plate 12/2016. hysterectomy - Family History Known Family History: Positive: None, Cardiac Disease, Hypertension, Diabetes - Social History Occupation: Employed Full-time Alcohol Use: Weekly Substance Use Type: None Smoking Status (MU): Never Smoked Tobacco - Immunization History Most Recent Influenza Vaccination: may 2015 Vaccination Up to Date: Yes Review of Systems Constitutional: Fever, Chills ENT: Sore Throat, Sinus Congestion, Sinus Pain/Tenderness Respiratory: Cough Musculoskeletal: Myalgia Is Patient Immunocompromised?: No All Other Systems Reviewed And Are Negative: Yes Physical Exam Triage Information Reviewed: Yes Appearance: Well-Appearing Vital Signs: Initial Vital Signs Temp 100 F 03/21/18 14:12 Pulse 117 03/21/18 14:12 Resp 16 03/21/18 14:12 BP 119/74 03/21/18 14:12 Pulse Ox 99 03/21/18 14:12 Vital Signs Reviewed: Yes Eyes: Positive: Conjunctiva Clear ENT: Positive: Pharynx normal, Nasal congestion, TMs normal, Uvula midline. Negative: Nasal drainage Neck: Positive: Supple, Nontender, No Lymphadenopathy Respiratory: Positive: Lungs clear, Normal breath sounds, No respiratory distress Cardiovascular: Positive: No Murmur, Pulses Normal, Tachycardia - 104 Abdomen Description: Positive: Nontender, No Organomegaly, Soft Bowel Sounds: Positive: Present Musculoskeletal: Positive: ROM Intact Neurological: Positive: Alert Psychological: Positive: Age Appropriate Behavior Skin Exam: Normal Diagnostics - Laboratory Diagnostic Studies Completed/Ordered: rapid strep=neg. rapid flu=negative Course/Dx - Course Course Of Treatment: non toxic, rapid strep and flu are negative. tx supportive. - Differential Dx - Multi-Symptom Provider Diagnoses: URI, sore throat, bronchitis Discharge - Sign-Out/Discharge Documenting (check all that apply): Patient Departure All imaging exams completed and their final reports reviewed: No Studies - Discharge Plan Condition: Stable Disposition: HOME Patient Education Materials: Upper Respiratory Infection (ED), Acute Bronchitis (ED) Forms: *Work Release Referrals: Phuong Sotelo MD [Primary Care Provider] - 5 Days - Billing Disposition and Condition Condition: STABLE Disposition: Home
[2018-03-21 15:31] VITALS: BP 110/68
--- NOTE | 2018-03-21 16:16 | RAD ---
Indication: Cough. 2 views of the chest including dual energy PA views demonstrate no mediastinal shift. Heart is of normal size and configuration. Lung delcid appear clear. IMPRESSION: No active cardiopulmonary disease is noted.
== END 2018-03-21 16:20 | disposition home or self-care (01) ==
LOC: UCCORT 12:05
DX: J06.9 Acute upper respiratory infection, unspecified (principal); J02.9 Acute pharyngitis, unspecified; J40 Bronchitis, not specified as acute or chronic; Z88.8 Allergy status to other drugs, medicaments and biological substances; Z88.0 Allergy status to penicillin
CPT/HCPCS: 71046; 87070; 87651; 99212; A9270-GY; G0463